=== PATIENT | male | born 1955 | race Caucasian/White ===

== ENCOUNTER → 2024-04-23 | Outpatient (CLI) | payer MEDICARE ==
[2024-04-23 09:52] LABS: ALT 17 U/L (4-49); AST 26 U/L (17-59); African American GFR (CKD) 66 (>60 ml/min/1.73 sqM); Albumin 3.9 g/dL (3.5-5.0); Albumin/Globulin Ratio 1.5; Alkaline Phosphatase 63 U/L (38-126); Anion Gap 7 mmol/L; Blood Urea Nitrogen 17 mg/dL (9-20); Calcium 9.5 mg/dL (8.4-10.2); Carbon Dioxide 23 mmol/L (22-30); Chloride 111 mmol/L (98-107); Globulin 2.6 g/dL; Glucose 102 mg/dL (74-99); Non-African American GFR(CKD) 57 (>60 ml/min/1.73 sqM); Potassium 4.4 mmol/L (3.5-5.1); Sodium 141 mmol/L (137-145); Total Protein 6.5 g/dL (6.3-8.2)
--- NOTE | 2024-04-23 09:57 | XR ---
EXAMINATION TYPE: XR Hip Complete RT DATE OF EXAM: 04/23/2024 9:16 AM CLINICAL INDICATION:Male, 69 years old with history of M25.551 PAIN IN RIGHT HIP; PHH COMPARISON: None. TECHNIQUE: XR Hip Complete RT; hip was examined in the frontal and lateral projections FINDINGS: No evidence for acute process, joint dislocation or significant soft tissue swelling. Osteo phyte formation of the superior acetabulum of the hip. There is mild joint space narrowing. IMPRESSION: 1. No evidence for acute process. 2. Mild hip osteoarthrosis.
== END | disposition home or self-care (01) ==
LOC: LABWHC1 08:20
PROVIDERS: ATTEND Family Medicine
DX: N18.30 Chronic kidney disease, stage 3 unspecified (principal); M16.11 Unilateral primary osteoarthritis, right hip
CPT/HCPCS: 36415; 73502; 80053

== ENCOUNTER → 2024-09-15 | Outpatient (CLI) | payer MEDICARE ==
[2024-09-15 10:12] LABS: Basophils # (A) 0.02 X 10*3/uL (0.00-0.10); Basophils % (A) 0.3 %; Eosinophils # (A) 0.22 X 10*3/uL (0.04-0.35); Eosinophils % (A) 3.4 %; HCT 45.5 % (39.6-50.0); HGB 15.6 g/dL (13.0-17.0); Lymphocytes # (A) 1.48 X 10*3/uL (0.90-5.00); Lymphocytes % (A) 23.1 %; MCH 31.3 pg (27.0-32.0); MCHC 34.3 g/dL (32.0-37.0); MCV 91.2 FL (80.0-97.0); Mean Platelet Volume 9.5 FL (9.5-12.2); Monocytes # (A) 0.53 X 10*3/uL (0.20-1.00); Monocytes % (A) 8.3 %; NRBC Per 100 WBC 0 X 10*3/uL (0.00-0.01); Neutrophils # (A) 4.13 X 10*3/uL (1.80-7.70); Neutrophils % (A) 64.6 %; Platelet Count 193 X 10*3/uL (140-440); RBC 4.99 X 10*6/uL (4.40-5.60); RDW 12.2 % (11.5-14.5)
[2024-09-15 10:45] LABS: Chol/HDL Ratio 3.93 Ratio; LDL Cholesterol,Calculated 75.3 mg/dL (0.0-131.0)
[2024-09-15 10:46] LABS: ALT 16 U/L (10-49); AST 21 U/L (14-35); Albumin 4.2 g/dL (3.8-4.9); Albumin/Globulin Ratio 2.21 Ratio (1.60-3.17); Alkaline Phosphatase 79 U/L (41-126); BUN/Creat Ratio 11.79 Ratio (12.00-20.00); Blood Urea Nitrogen 16.5 mg/dL (9.0-27.0); Calcium 9.3 mg/dL (8.7-10.3); Carbon Dioxide 26.1 mmol/L (21.6-31.8); Chloride 110 mmol/L (96-109); Globulin 1.9 g/dL (1.6-3.3); Glucose 107 mg/dL (70-110); Potassium 4.5 mmol/L (3.5-5.5); Prostate Specific Antigen 0.67 ng/mL (0.000-4.500); Sodium 145 mmol/L (135-145); Total Bilirubin 0.7 mg/dL (0.3-1.2); Total Protein 6.1 g/dL (6.2-8.2)
== END | disposition home or self-care (01) ==
LOC: LABWHC1 07:18
PROVIDERS: ATTEND Family Medicine
DX: Z12.5 Encounter for screening for malignant neoplasm of prostate (principal); I12.9 Hypertensive chronic kidney disease with stage 1 through stage 4 chronic kidney disease, or unspecified chronic kidney disease; N18.30 Chronic kidney disease, stage 3 unspecified
CPT/HCPCS: 36415; 80053; 80061; 82306; 84153; 85025

== ENCOUNTER 2025-02-26 17:49 | Inpatient (IN) | payer MEDICARE ==
--- NOTE | 2025-02-26 18:15 | ED ---
General Adult HPI - General Chief complaint: Fall Stated complaint: fell of ladder L side rib pain Time Seen by Provider: 02/26/25 18:00 Source: patient, family, RN notes reviewed, old records reviewed Limitations: no limitations - History of Present Illness Initial comments: Is a 70-year-old male who states he fell about 8 feet off of a ladder hit his side on concrete when he fell. Patient states he has pain in the left rib area. Patient denies any head injury patient denies hitting his head. Patient denies any loss of conscious. Patient denies any neck pain patient denies having numbness weakness. Patient denies any back pain. Patient states the chest pain on the left is on the lateral aspect. Patient states certain movements deftly makes it worse. Patient denies any abdominal pain. Patient denies any extremity pain. - Related Data Allergies Allergy/AdvReac Type Severity Reaction Status Date / Time No Known Allergies Allergy Verified 02/26/25 17:58 Review of Systems ROS Statement: Those systems with pertinent positive or pertinent negative responses have been documented in the HPI. ROS Other: All systems not noted in ROS Statement are negative. Past Medical History Past Medical History: Hypertension, Renal Disease Past Surgical History: No Surgical Hx Reported Smoking Status: Never smoker General Exam - General Exam Comments Initial Comments: GENERAL: Patient is well-developed and well-nourished. Patient is nontoxic and well- hydrated and is in moderate distress. ENT: Neck is soft and supple. No significant lymphadenopathy is noted. Oropharynx is clear. Moist mucous membranes. Neck has full range of motion without eliciting any pain. EYES: The sclera were anicteric and conjunctiva were pink and moist. Extraocular movements were intact and pupils were equal round and reactive to light. Eyelids were unremarkable. PULMONARY: Unlabored respirations. Good breath sounds bilaterally. No audible rales rhonchi or wheezing was noted. CARDIOVASCULAR: There is a regular rate and rhythm without any murmurs gallops or rubs. Patient has a left lateral rib pain ABDOMEN: Soft and nontender with normal bowel sounds. Patient has absolutely no abdominal pain SKIN: Skin is clear with no lesions or rashes and otherwise unremarkable. NEUROLOGIC: Patient is alert and oriented x3. Cranial nerves II through XII are grossly intact. Motor and sensory are also intact. Normal speech, volume and content. Symmetrical smile. MUSCULOSKELETAL: Normal extremities with adequate strength and full range of motion. LYMPHATICS: No significant lymphadenopathy is noted PSYCHIATRIC: Normal psychiatric evaluation. Limitations: no limitations Course Vital Signs 02/26/25 02/26/25 02/26/25 17:55 18:54 21:41 Temperature 98.1 F 97.5 F L Pulse Rate 62 82 77 Respiratory 18 20 19 Rate Blood Pressure 147/74 139/81 132/77 O2 Sat by Pulse 95 96 95 Oximetry Medical Decision Making - Medical Decision Making EKG is interpreted by myself EKG shows a sinus rhythm at 75 bpm NM interval 109 QRS 103 QT interval 383 QTc is 411. Patient's EKG shows no ST segment patient or depression Was pt. sent in by a medical professional or institution (, [facility], [employer]OR ENGINEER, urgent care, hospital, or penitentiary...) When possible be specific @ -No Did you speak to anyone other than the patient for history (EMS, parent, family, police, friend...)? What history was obtained from this source @ -No Did you review nursing and triage notes (agree or disagree)? Why? @ -I reviewed and agree with nursing and triage notes Were old charts reviewed (outside hosp., previous admission, EMS record, old EKG, old radiological studies, urgent care reports/EKG's, penitentiary records)? Report findings @ -No old charts were reviewed Differential Diagnosis? @ -Rib fractures, pneumothorax, hemothorax, sternal fracture, this is not an all-inclusive list @ -As above X-rays interpreted by me (1pt min.). @ -X-ray shows 4 rib fractures on the left CT interpreted by me (1pt min.). @ -CT scan shows 7 rib fractures on the left 3 through 8 are a flail chest T6 is a transverse process fracture and the patient has a pulmonary contusion. U/S interpreted by me (1pt. min.). @ -None done What testing was considered but not performed or refused? (CT, X-rays, U/S, labs)? Why? @ -None What meds were considered but not given or refused? Why? @ -None Did you discuss the management of the patient with other professionals (professionals i.e. [facility], [employer]OR ENGINEER, lab, RT, psych nurse, manager social media, strategy specialist, teacher, foreign service officer, rn case mgr)? Give summary @ -I spoke with Dr. Muñoz and he wanted the patient mated to the ICU. Spoke with Dr. Abebe and he agreed to take the patient to ICU. Was smoking cessation discussed for >3mins.? @ -No Was critical care preformed (if so, how long)? @ -40 minutes Were there social determinants of health that impacted care today? How? (Homelessness, low income, unemployed, alcoholism, drug addiction, transportation, low edu. Level, literacy, decrease access to med. care, residential, rehab)? @ -No Was there de-escalation of care discussed even if they declined (Discuss DNR or withdrawal of care, Hospice)? DNR status @ -No What co-morbidities impacted this encounter? (DM, HTN, Smoking, COPD, CAD, Cancer, CVA, ARF, Chemo, Hep., AIDS, mental health diagnosis, sleep apnea, morbid obesity)? @ -None Was patient admitted / discharged? Hospital course, mention meds given and route, prescriptions, significant lab abnormalities, going to OR and other pertinent info. @ -Patient got multiple doses of Dilaudid and was feeling better and he was not having problems breathing except for the fact that cause pain. Patient will be admitted to the ICU to Dr. Muñoz with a consult to Dr. Stern cardiothoracic surgery and anesthesia and internal medicine. Undiagnosed new problem with uncertain prognosis? @ -No Drug Therapy requiring intensive monitoring for toxicity (Heparin, Nitro, Insulin, Cardizem)? @ -No Were any procedures done? @ -No Diagnosis/symptom? @ -Flail chest Acute, or Chronic, or Acute on Chronic? @ -Acute Uncomplicated (without systemic symptoms) or Complicated (systemic symptoms)? @ -Complicated Side effects of treatment? @ -No Exacerbation, Progression, or Severe Exacerbation? @ -No Poses a threat to life or bodily function? How? (Chest pain, USA, MD, pneumonia, PE, COPD, DKA, ARF, appy, cholecystitis, CVA, Diverticulitis, Homicidal, Suicidal, threat to staff... and all critical care pts) @ -Yes this could lead to hypoxia and endorgan dysfunction Diagnosis/symptom? @ -Pulmonary contusion Acute, or Chronic, or Acute on Chronic? @ -Acute Uncomplicated (without systemic symptoms) or Complicated (systemic symptoms)? @ -Complicated Side effects of treatment? @ -None Exacerbation, Progression, or Severe Exacerbation] @ -No Poses a threat to life or bodily function? @ -Yes this can lead to hypoxia and endorgan dysfunction Diagnosis/symptom? @ -T6 transverse process fracture Acute, or Chronic, or Acute on Chronic? @ -Default Uncomplicated (without systemic symptoms) or Complicated (systemic symptoms)? @ -Default Side effects of treatment? @ -None Exacerbation, Progression, or Severe Exacerbation] @ -No Poses a threat to life or bodily function? @ -No - Lab Data Result diagrams: 02/26/25:02/26/25: Lab Results 02/26/25 02/26/25 02/26/25 Range/Units ::: WBC 17.74 H (4.50-10.00) 10*3/uL RBC 5.29 (4.40-5.60) 10*6/uL Hgb 16.8 (13.0-17.0) g/dL Hct 47.1 (39.6-50.0) % MCV 89.0 (80.0-97.0) fL MCH 31.8 (27.0-32.0) pg MCHC 35.7 (32.0-37.0) g/dL Plt Count 237 (140-440) 10*3/uL MPV 8.8 L (9.5-12.2) fL Immature Gran % (Auto) 0.4 % Neutrophils % 89.0 % Lymphocytes % 4.4 % Monocytes % 6.0 % Eosinophils % 0.0 % Basophils % 0.2 % Immature Gran # 0.07 H (0.00-0.04) 10*3/uL Neutrophils # 15.80 H (1.80-7.70) 10*3/uL Lymphocytes # 0.78 L (0.90-5.00) 10*3/uL Monocytes # 1.06 H (0.20-1.00) 10*3/uL Eosinophils # 0.00 L (0.04-0.35) 10*3/uL Basophils # 0.03 (0.00-0.10) 10*3/uL PT 11.3 (10.0-12.5) sec INR 1.0 (<1.2) APTT 21.1 L (22.0-30.0) sec Sodium 141 (137-145) mmol/L Potassium 4.6 (3.5-5.1) mmol/L Chloride 105 (98-107) mmol/L Carbon Dioxide 24 (22-30) mmol/L Anion Gap 12 mmol/L BUN 24 H (9-20) mg/dL Creatinine 1.45 H (0.66-1.25) mg/dL Est GFR (CKD-EPI)AfAm 56 (>60 ml/min/1.73 sqM) Est GFR (CKD-EPI)NonAf 48 (>60 ml/min/1.73 sqM) Glucose 159 H (74-99) mg/dL Calcium 10.0 (8.4-10.2) mg/dL Total Bilirubin 0.9 (0.2-1.3) mg/dL AST 36 (17-59) U/L ALT 23 (4-49) U/L Alkaline Phosphatase 80 (38-126) U/L Total Protein 7.4 (6.3-8.2) g/dL Albumin 4.7 (3.5-5.0) g/dL Disposition Clinical Impression: Fall, Pulmonary contusion, Flail chest, Fracture of transverse process of thoracic vertebra Disposition: ADMITTED IP TO THIS [facility] Time of Disposition: 21:30
[2025-02-26] MEDS: HYDROmorphone 0.5 MG/0.5 ML SYRINGE IVP STA ×2 (18:23→19:54)
--- NOTE | 2025-02-26 18:51 | XR ---
EXAMINATION TYPE: XR ribs LT w pa chest xray DATE OF EXAM: 02/26/2025 6:42 PM INDICATION: Patient age:Male; 70 years old; Reason for study: Trauma; PHH. pain COMPARISON: None TECHNIQUE: Frontal and oblique views of the left wrist with additional PA chest radiograph FINDINGS: The ribs have a normal appearance. Acute mildly displaced left lateral fourth through eight h rib fractures. Overall, the lungs are clear. The cardiac silhouette is normal in size. The remain ing osseous structures are intact. IMPRESSION: Acute mildly displaced left lateral 4-8 rib fractures. No sizable pneumothorax identified. [facility], , 02/26/2025 6:49 PM
--- NOTE | 2025-02-26 21:03 | CT ---
EXAMINATION TYPE: CT chest wo con CT DLP: 436.5 mGycm, Automated exposure control for dose reduction was used. DATE OF EXAM: 02/26/2025 8:39 PM COMPARISON: Chest radiograph from same day. CLINICAL INDICATION:Male, 70 years old with history of Trauma; PHH, FALL FROM LADDER, LEFT SIDE RIB P AIN TECHNIQUE: Multiple axial images were obtained through the chest without IV contrast. Lack of IV or o ral contrast limits evaluation of solid and hollow organ viscera. . Coronal and sagittal reformats re viewed. FINDINGS: LUNGS/ PLEURA: Trace anterior pneumothorax in the medial left lung inferiorly. Trace left pleural eff usion. Bibasilar patchy airspace opacities. No suspicious pulmonary nodule or mass. AIRWAY: Patent and unremarkable.. HEART: Cardiomegaly is demonstrated. . No pericardial effusion. No significant coronary artery calcif ications. MEDIASTINUM: No gross evidence of adenopathy. No mediastinal hematoma. VASCULATURE: No aortic aneurysm. MUSCULOSKELETAL: Acute minimally displaced anterior left second rib fracture. Acute nondisplaced segm ental fractures of the third and fourth ribs. Acute segmental mildly displaced left fifth rib fractur e. Nondisplaced acute left segmental sixth rib fracture. Acute left segmental mildly displaced sevent h rib fracture. Acute nondisplaced left segmental eighth rib fracture. Acute nondisplaced fracture of the left T6 transverse process. Multilevel degenerative disc disease. SOFT TISSUES/LYMPH NODES: Trace left chest wall subcutaneous emphysema. Bilateral gynecomastia. LOWER NECK: No significant findings. UPPER ABDOMEN: Small hiatal hernia. IMPRESSION: 1. Multiple left-sided acute nondisplaced to mildly displaced fractures with involving the second and third through eighth ribs. There are segmental fractures of the third through eighth ribs. Raises co ncern for flail chest. Additional nondisplaced acute left T6 transverse process fracture. There is as sociated trace pneumothorax, left pleural effusion, and subcutaneous emphysema. 2. Bibasilar patchy opacities likely representing pulmonary contusions and/or atelectasis. Findings communicated to Dr. oTdd Harvey on 02/26/2025 9:[address] Jacob Brady . [facility], , 02/26/2025 9:00 PM
[2025-02-26] MEDS ORDERED: NALOXONE 0.4 MG/ML 1 ML VIAL IV PRN ×2 (21:31→21:33)
[2025-02-26 21:34] LABS: Basophils # (A) 0.03 10*3/uL (0.00-0.10); Basophils % (A) 0.2 %; HCT 47.1 % (39.6-50.0); HGB 16.8 g/dL (13.0-17.0); Lymphocytes # (A) 0.78 10*3/uL (0.90-5.00); Lymphocytes % (A) 4.4 %; MCH 31.8 pg (27.0-32.0); MCHC 35.7 g/dL (32.0-37.0); Mean Platelet Volume 8.8 fL (9.5-12.2); Monocytes # (A) 1.06 10*3/uL (0.20-1.00); Platelet Count 237 10*3/uL (140-440); RBC 5.29 10*6/uL (4.40-5.60); RDW 12.6 % (11.5-14.5); WBC 17.74 10*3/uL (4.50-10.00)
[2025-02-26] MEDS: HYDROmorphone 1 MG/ML 1 ML SYRINGE IVP STA (21:39)
[2025-02-26 21:50] LABS: ALT 23 U/L (4-49); AST 36 U/L (17-59); African American GFR (CKD) 56 (>60 ml/min/1.73 sqM); Albumin 4.7 g/dL (3.5-5.0); Alkaline Phosphatase 80 U/L (38-126); Anion Gap 12 mmol/L; Blood Urea Nitrogen 24 mg/dL (9-20); Carbon Dioxide 24 mmol/L (22-30); Chloride 105 mmol/L (98-107); Glucose 159 mg/dL (74-99); Non-African American GFR(CKD) 48 (>60 ml/min/1.73 sqM); Potassium 4.6 mmol/L (3.5-5.1); Sodium 141 mmol/L (137-145); Total Bilirubin 0.9 mg/dL (0.2-1.3); Total Protein 7.4 g/dL (6.3-8.2)
[2025-02-26 21:51] LABS: Prothrombin Time 11.3 sec (10.0-12.5)
[2025-02-26 21:53] LABS: Partial Thromboplastin Time 21.1 sec (22.0-30.0)
[2025-02-27 00:26] LABS: Glucose,Whole Blood 196 mg/dL (70-110)
[2025-02-27] MEDS ORDERED: KETOROLAC 15 MG/ML 1 ML VIAL IVP PRN (01:21)
--- NOTE | 2025-02-27 03:08 | P.CNPUL ---
History of Present Illness Consult date: 02/27/25 Requesting physician: Todd Harvey Reason for consult: other (Fall, rib fractures, flail chest) Chief complaint: Fall History of present illness: Patient is a 70-year-old male came to the emergency department yesterday evening after a fall from a ladder. He fell approximately 8 feet onto concrete. Landed on his left side. Denies any head trauma or loss of consciousness. Denies any anticoagulants. His chief complaint was left lateral chest pain. Workup in the emergency department including a CT of the chest demonstrating multiple left- sided acute nondisplaced to mildly displaced fractures involving the left 2nd through 8th ribs, with segmental fractures of 3rd through 8th ribs. Concern for flail chest. Trace left inferior pneumothorax and trace pleural effusion. Bilateral atelectasis or pulmonary contusion. Small amount of subcutaneous emphysema. Additional, nondisplaced acute left T6 transverse process fracture. Labs including a CBC with a WBC count of 7.7, hemoglobin 16.8, platelets 237. BMP: Sodium 141, potassium 4.6, chloride 105, serum bicarb 24, BUN 24, crea tinine 1.45, glucose 159. Lactic 2.3 and now 2.8. LFTs unremarkable. Patient currently being evaluated in the intensive care unit. He is on room air. No acute distress. Trachea midline. Equal breath sounds. No paradoxical chest wall movement. No palpable subcu emphysema or crepitus. Continues to report left lateral chest wall pain with movement and deep breathing. Rated 10/10. Morphine is ordered as needed. His incentive spirometer is at bedside. Current vital signs: Heart rate 63 bpm, blood pressure 133/76 mmHg, nontachypneic, SpO2 92% on room air. Review of Systems Constitutional: Denies chills, Denies fever, Denies poor appetite, Denies weight gain, Denies weight loss Ears, nose, mouth and throat: Denies headache Cardiovascular: Reports chest pain, Reports leg edema, Denies lightheadedness, Denies orthopnea, Denies palpitations, Denies paroxysmal nocturnal dyspnea, Denies syncope Respiratory: Reports dyspnea, Reports pain on inspiration, Denies congestion, Denies cough, Denies hemoptysis Gastrointestinal: Denies abdominal pain, Denies diarrhea, Denies nausea, Denies vomiting Genitourinary: Denies dysuria, Denies hematuria Musculoskeletal: Denies arm numbness/tingling, Denies leg numbness/tingling, Denies limitation of motion, Denies neck pain, Denies neck stiffness, Denies s hooting arm pain, Denies shooting leg pain Integumentary: Denies rash, Denies unusual bruising Neurological: Denies head injury, Denies headaches, Denies numbness, Denies paralysis, Denies paresthesias, Denies seizures, Denies syncope, Denies visual changes Psychiatric: Denies anxiety, Denies depression Past Medical History Past Medical History: Hypertension, Renal Disease History of Any Multi-Drug Resistant Organisms: None Reported Past Surgical History: No Surgical Hx Reported Past Anesthesia/Blood Transfusion Reactions: No Reported Reaction Past Psychological History: No Psychological Hx Reported Smoking Status: Never smoker Medications and Allergies Allergies Allergy/AdvReac Type Severity Reaction Status Date / Time No Known Allergies Allergy Verified 02/26/25 17:58 Physical Exam Vitals: Vital Signs Temp Pulse Resp BP Pulse Ox 02/27/25 01:00 63 16 133/76 92 L 02/27/25 00:30 70 24 133/76 92 L 02/26/25 23:53 69 20 124/79 94 L 02/26/25 23:21 97.7 F 67 21 117/63 94 L 02/26/25 22:35 20 02/26/25 21:41 77 19 132/77 95 02/26/25 18:54 97.5 F L 82 20 139/81 96 02/26/25 17:55 98.1 F 62 18 147/74 95 Intake and Output 02/26/25 02/26/25 02/27/25 14:59 22:59 06:59 Output Total 0 Balance 0 Output: Urine 0 Other: Weight 113.398 kg 113.398 kg GENERAL EXAM: Alert, 70-year-old male, on room air, fairly comfortable in no apparent distress. HEAD: Normocephalic and atraumatic EYES: Normal reaction of pupils, equal size. NOSE: Clear with pink turbinates. THROAT: No erythema or exudates. NECK: No masses, no JVD. Trachea midline. CHEST: No paradoxical chest wall movement. No significant crepitus or subcutaneous emphysema. No ecchymosis. LUNGS: Equal air entry with no crackles, wheeze, rhonchi or dullness. No conversational dyspnea or accessory muscle use.. CVS: S1 and S2 normal with no audible murmur, regular rhythm. No extra heart sounds ABDOMEN: No hepatosplenomegaly, active bowel sounds, no guarding or rigidity. SPINE: No scoliosis or deformity SKIN: No rashes. Ecchymosis, left lateral abdomen CENTRAL NERVOUS SYSTEM: No focal deficits, tone is normal in all 4 extremities. EXTREMITIES: There is mild bilateral nonpitting edema. No clubbing or cyanosis. Peripheral pulses are intact. Results - Laboratory Findings CBC and BMP: 02/27/25 03:23 02/27/25 03:19 PT/INR, D-dimer PT 11.3 sec (10.0-12.5) 02/26/25 21: INR 1.0 (<1.2) 02/26/25 21: Abnormal lab findings: Abnormal Labs 02/26/25 02/26/25 02/26/25 21:25 21:25 21:25 WBC 17.74 H MPV 8.8 L Immature Gran # 0.07 H Neutrophils # 15.80 H Lymphocytes # 0.78 L Monocytes # 1.06 H Eosinophils # 0.00 L APTT 21.1 L BUN 24 H Creatinine 1.45 H Glucose 159 H POC Glucose (mg/dL) Plasma Lactic Acid Fam 02/26/25 02/27/25 02/27/25 22:15 00:25 01:13 WBC MPV Immature Gran # Neutrophils # Lymphocytes # Monocytes # Eosinophils # APTT BUN Creatinine Glucose POC Glucose (mg/dL) 196 H Plasma Lactic Acid Fam 2.3 H* 2.8 H* - Diagnostic Findings Chest x-ray: image reviewed CT scan - chest: image reviewed Assessment and Plan Assessment: Acute nondisplaced to mildly displaced fractures involving left 2nd through 8th ribs with segmental fractures from 3rd through 8th ribs. Clinically, no paradoxical chest wall movement. Trace left-sided pleural effusion, likely hemothorax Trace left-sided pneumothorax Bibasilar atelectasis versus pulmonary contusion Acute dyspnea, secondary to combination of above Fall from ladder Hypertension Acute versus chronic kidney disease Obesity, BMI 33.9 kg/m Plan: Patient's medications, labs, imaging reviewed Currently on room air, in no apparent distress Pain management with IV push morphine as needed and lidocaine patch Encourage pulmonary toileting hourly, incentive spirometer at bedside No need for thoracotomy tube Repeat chest x-ray in the morning Cardiothoracic surgery consulted Patient is being monitored in the intensive care unit, further recommendations forthcoming I have personally seen and examined the patient, performed the documentation and the assessment and plan as written. Number of minutes spent on the visit:20 02/27/2025, the patient is being seen in joint evaluation along with the nurse practitioner. This evaluation was done and 32 minutes. In summary, the patient has multiple nondisplaced and mildly displaced fractures of the ribs on the left 2nd through 8th. On clinical examination, the chest is not flail. There is no paradoxic movement of the chest noted. This was a mechanical fall. No loss of consciousness. The patient has some atelectatic changes and limited contusion in the left lung base. He is currently on room air oxygen. No evidence of any pneumothorax. No pneumothorax. Pain is being controlled with morphine and lidocaine patch. CT surgery was consulted. The treatment is going to be essentially pain control, incentive spirometer and pulmonary toileting. Will continue monitoring and x-ray will be obtained of the chest within next 24 hours Time with Patient: Greater than 30
[2025-02-27] MEDS: LIDOCAINE 4% PATCH TOPICAL SCH (03:10)
[2025-02-27 04:12] LABS: Basophils # (A) 0.01 10*3/uL (0.00-0.10); Basophils % (A) 0.1 %; HCT 44.7 % (39.6-50.0); HGB 15.7 g/dL (13.0-17.0); Lymphocytes # (A) 0.53 10*3/uL (0.90-5.00); Lymphocytes % (A) 4.3 %; MCH 32.4 pg (27.0-32.0); MCHC 35.1 g/dL (32.0-37.0); MCV 92.2 fL (80.0-97.0); Mean Platelet Volume 8.9 fL (9.5-12.2); Monocytes # (A) 0.83 10*3/uL (0.20-1.00); Monocytes % (A) 6.7 %; Neutrophils # (A) 10.88 10*3/uL (1.80-7.70); Neutrophils % (A) 88.5 %; Platelet Count 202 10*3/uL (140-440); RBC 4.85 10*6/uL (4.40-5.60); RDW 12.7 % (11.5-14.5)
[2025-02-27 04:53] LABS: African American GFR (CKD) 58 (>60 ml/min/1.73 sqM); Anion Gap 12 mmol/L; Blood Urea Nitrogen 26 mg/dL (9-20); Calcium 9.8 mg/dL (8.4-10.2); Carbon Dioxide 21 mmol/L (22-30); Chloride 107 mmol/L (98-107); Glucose 144 mg/dL (74-99); Magnesium 2.1 mg/dL (1.6-2.3); Non-African American GFR(CKD) 50 (>60 ml/min/1.73 sqM); Potassium 5.3 mmol/L (3.5-5.1); Sodium 140 mmol/L (137-145)
[2025-02-27] MEDS: MORPHINE SULFATE 2 MG/ML SYRINGE IV PRN (05:12)
[2025-02-27] MEDS: SODIUM CHLORIDE 0.9% 1,000 ML IV SCH (05:20)
--- NOTE | 2025-02-27 07:20 | XR ---
EXAMINATION TYPE: XR chest 1V portable DATE OF EXAM: 02/27/2025 5:53 AM COMPARISON: CT CLINICAL INDICATION: Male, 70 years old with history of Chest Trauma; pain TECHNIQUE: XR chest 1V portable Frontal view of the chest. FINDINGS: Lungs/Pleura: There is no evidence of pleural effusion, focal consolidation, or pneumothorax. Pulmonary vascularity: Unremarkable. Heart/mediastinum: Cardiomediastinal silhouette is unremarkable. Musculoskeletal: Acute fracture left rib 3-[address] Other findings: None IMPRESSION: 1. There is at least one left-sided rib fracture present of left rib 3 through 8. 2. Low lung volumes with a generalized hazy appearance which could represent atelectasis versus pulm onary edema correlate with serum BNP. [facility], , 02/27/2025 7:18 AM
--- NOTE | 2025-02-27 08:33 | P.GSCN ---
History of Present Illness Consult date: 02/27/25 Reason for Consult: Fall with fractured ribs, concern for flail chest Requesting physician: Todd Harvey History of present illness: This is a 70-year-old gentleman who follows outpatient with Dr. Aranda for internal medicine. He denies any significant medical history except hypertension and borderline kidney disease, states the only medication he takes is something for blood pressure. He presented to [facility] emergency room yesterday after a fall off a ladder, he fell approximately 8 feet onto [facility] and landed on his left side. Denied any loss of consciousness. In the emergency room rib x-ray demonstrated acute mildly displaced left lateral 4 through [address] demonstrated multiple left-sided acute nondisplaced to mildly displaced fractures involving the 2nd through 8th ribs with segmental fractures of the 3rd through 8th ribs concerning for flail chest. Lab work revealed WBC 17.7, hemoglobin 16.8, creatinine 1.45, lactic acid 2.3. The patient's biggest complaint is left-sided chest pain especially with deep breaths and coughing. He was admitted for evaluation and treatment with consultation placed to pulmonology, pain management as well as cardiothoracic ba rgery. Review of Systems Review of systems was completed and was negative except as noted - Cardiovascular Reports as per HPI, Reports chest pain Past Medical History Past Medical History: Hypertension, Renal Disease History of Any Multi-Drug Resistant Organisms: None Reported Past Surgical History: No Surgical Hx Reported Past Anesthesia/Blood Transfusion Reactions: No Reported Reaction Past Psychological History: No Psychological Hx Reported Smoking Status: Never smoker Past Alcohol Use History: Rare Additional Past Alcohol Use History / Comment(s): Drinks few drinks on the weekends Past Drug Use History: None Reported - Past Family History Father Family Medical History: Cancer Mother Additional Family Medical History / Comment(s): from some kind of abdominal issue for which she did not want surgery Medications and Allergies Allergies Allergy/AdvReac Type Severity Reaction Status Date / Time No Known Allergies Allergy Verified 02/26/25 17:58 Surgical - Exam Vital Signs Temp Pulse Resp BP Pulse Ox 98.1 F 62 18 147/74 95 02/26/25 17:55 02/26/25 17:55 02/26/25 17:55 02/26/25 17:55 02/26/25 17:55 CONSTITUTIONAL: Awake and alert, appears uncomfortable, cooperative, well-developed, well-nourished, does appear to be in pain EYES: Pupils equal, round, reactive to light, normal ocular movement ENT: Moist mucous membranes without oral lesions present NECK: No masses, no bruits, trachea midline RESPIRATORY: Lungs sounds diminished in the left base. Respirations even, nonlabored. Currently on room air with oxygen saturation 93%. Strong cough. No chest wall deformities. No clubbing or cyanosis present CARDIOVASCULAR: S1, S2 present. Regular rate and rhythm, sinus rhythm on telemetry. Palpable peripheral pulses bilaterally. No edema present. No calf pain or tenderness noted GASTROINTESTINAL: Abdomen soft, nontender, nondistended without masses or organomegaly noted. There is no rebound or guarding present. Active bowel sounds present 4 quadrants. GENITOURINARY: Deferred INTEGUMENTARY: Skin is warm and dry NEUROLOGIC: Cranial nerves II through XII intact, normal coordination, no obvious motor or sensory deficits, speech is normal MUSKULOSKELETAL: Able to move all extremities, strength equal bilaterally, normal posture PSYCHIATRIC: Alert and oriented to person place and time, appropriate affect, intact judgment and insight Results - Labs 02/27/25 03:23 02/27/25 03:19 Abnormal Lab Results - Last 24 Hours (Table) 02/26/25 02/26/25 02/26/25 Range/Units 21:25 21:25 21:25 WBC 17.74 H (4.50-10.00) 10*3/uL MCH (27.0-32.0) pg MPV 8.8 L (9.5-12.2) fL Immature Gran # 0.07 H (0.00-0.04) 10*3/uL Neutrophils # 15.80 H (1.80-7.70) 10*3/uL Lymphocytes # 0.78 L (0.90-5.00) 10*3/uL Monocytes # 1.06 H (0.20-1.00) 10*3/uL Eosinophils # 0.00 L (0.04-0.35) 10*3/uL APTT 21.1 L (22.0-30.0) sec Potassium (3.5-5.1) mmol/L Carbon Dioxide (22-30) mmol/L BUN 24 H (9-20) mg/dL Creatinine 1.45 H (0.66-1.25) mg/dL Glucose 159 H (74-99) mg/dL POC Glucose (mg/dL) (70-110) mg/dL Plasma Lactic Acid Fam (0.7-2.0) mmol/L 02/26/25 02/27/25 02/27/25 Range/Units 22:15 00:25 01:13 WBC (4.50-10.00) 10*3/uL MCH (27.0-32.0) pg MPV (9.5-12.2) fL Immature Gran # (0.00-0.04) 10*3/uL Neutrophils # (1.80-7.70) 10*3/uL Lymphocytes # (0.90-5.00) 10*3/uL Monocytes # (0.20-1.00) 10*3/uL Eosinophils # (0.04-0.35) 10*3/uL APTT (22.0-30.0) sec Potassium (3.5-5.1) mmol/L Carbon Dioxide (22-30) mmol/L BUN (9-20) mg/dL Creatinine (0.66-1.25) mg/dL Glucose (74-99) mg/dL POC Glucose (mg/dL) 196 H (70-110) mg/dL Plasma Lactic Acid Fam 2.3 H* 2.8 H* (0.7-2.0) mmol/L 02/27/25 02/27/25 02/27/25 Range/Units 03:19 03:23 03:52 WBC 12.30 H (4.50-10.00) 10*3/uL MCH 32.4 H (27.0-32.0) pg MPV 8.9 L (9.5-12.2) fL Immature Gran # 0.05 H (0.00-0.04) 10*3/uL Neutrophils # 10.88 H (1.80-7.70) 10*3/uL Lymphocytes # 0.53 L (0.90-5.00) 10*3/uL Monocytes # (0.20-1.00) 10*3/uL Eosinophils # 0.00 L (0.04-0.35) 10*3/uL APTT (22.0-30.0) sec Potassium 5.3 H (3.5-5.1) mmol/L Carbon Dioxide 21 L (22-30) mmol/L BUN 26 H (9-20) mg/dL Creatinine 1.42 H (0.66-1.25) mg/dL Glucose 144 H (74-99) mg/dL POC Glucose (mg/dL) (70-110) mg/dL Plasma Lactic Acid Fam 3.0 H* (0.7-2.0) mmol/L Diabetes panel 02/26/25 02/27/25 Range/Units 21:25 03:19 Sodium 141 140 (137-145) mmol/L Potassium 4.6 5.3 H (3.5-5.1) mmol/L Chloride 105 107 (98-107) mmol/L Carbon Dioxide 24 21 L (22-30) mmol/L BUN 24 H 26 H (9-20) mg/dL Creatinine 1.45 H 1.42 H (0.66-1.25) mg/dL Glucose 159 H 144 H (74-99) mg/dL Calcium 10.0 9.8 (8.4-10.2) mg/dL AST 36 (17-59) U/L ALT 23 (4-49) U/L Alkaline Phosphatase 80 (38-126) U/L Total Protein 7.4 (6.3-8.2) g/dL Albumin 4.7 (3.5-5.0) g/dL Calcium panel 02/26/25 02/27/25 Range/Units 21:25 03:19 Calcium 10.0 9.8 (8.4-10.2) mg/dL Albumin 4.7 (3.5-5.0) g/dL Pituitary panel 02/26/25 02/27/25 Range/Units 21:25 03:19 Sodium 141 140 (137-145) mmol/L Potassium 4.6 5.3 H (3.5-5.1) mmol/L Chloride 105 107 (98-107) mmol/L Carbon Dioxide 24 21 L (22-30) mmol/L BUN 24 H 26 H (9-20) mg/dL Creatinine 1.45 H 1.42 H (0.66-1.25) mg/dL Glucose 159 H 144 H (74-99) mg/dL Calcium 10.0 9.8 (8.4-10.2) mg/dL Adrenal panel 02/26/25 02/27/25 Range/Units 21:25 03:19 Sodium 141 140 (137-145) mmol/L Potassium 4.6 5.3 H (3.5-5.1) mmol/L Chloride 105 107 (98-107) mmol/L Carbon Dioxide 24 21 L (22-30) mmol/L BUN 24 H 26 H (9-20) mg/dL Creatinine 1.45 H 1.42 H (0.66-1.25) mg/dL Glucose 159 H 144 H (74-99) mg/dL Calcium 10.0 9.8 (8.4-10.2) mg/dL Total Bilirubin 0.9 (0.2-1.3) mg/dL AST 36 (17-59) U/L ALT 23 (4-49) U/L Alkaline Phosphatase 80 (38-126) U/L Total Protein 7.4 (6.3-8.2) g/dL Albumin 4.7 (3.5-5.0) g/dL - Imaging Chest x-ray: report reviewed, image reviewed CT scan - chest: report reviewed, image reviewed Assessment and Plan Assessment: Fall from ladder with left-sided rib fractures, concern for flail chest Left-sided chest pain History of hypertension Borderline renal failure Plan: The patient was seen and examined sitting up in bed in the intensive care unit. Does appear to be in pain with movement, coughing, deep breathing. Chart/diagnostics reviewed. Discussed with Dr. Mckay. There is no paradoxical movement of the chest suggesting no flail chest present. No surgical intervention at this time. Recommend pain control, preferably without anti- inflammatories as patient states his doctor has told him not to take NSAIDs due to his kidney disease. Encouraged deep breathing and use of incentive spirometer. Increase activity as tolerated. Medical management per internal medicine, pain management services. Will see again as needed. Thank you for this consult. Please call us with any further questions. I have personally seen and examined the patient, performed the documentation and the assessment and plan as written. Number of minutes spent on the visit: 30. PALOMO Green
[2025-02-27] MEDS ORDERED: LIDOCAINE 4% PATCH TOPICAL SCH (09:00)
[2025-02-27] MEDS ORDERED: HYDROmorphone 1 MG/ML 1 ML SYRINGE IVP PRN (10:51)
[2025-02-27] MEDS: HYDROcodone/APAP 5-325MG 1 EACH TAB PO PRN (11:24)
[2025-02-27] MEDS ORDERED: ROPIVACAINE 5MG/ML 20ML VIAL ONE (11:46)
[2025-02-27] MEDS ORDERED: DEXAMETHASONE SOD PHOSPHATE 10 MG/ML 1 ML VIAL ONE (11:46)
[2025-02-27] MEDS: NEBIVOLOL 5 MG TAB PO SCH (11:55)
--- NOTE | 2025-02-27 12:06 | P.CONS ---
History of Present Illness - Reason for Consult Consult date: 02/27/25 Medical management Requesting physician: Kylee Muñoz - Chief Complaint Fall - History of Present Illness Very pleasant 70-year-old patient, with chronic medical condition include hypertension chronic kidney disease. Patient was in his garage on the ladder. And coming down after putting up stuff patient to grab staff and fell. Injury on his left side. X-ray showed displaced mildly left lateral 4-8 rib fractures. No pneumothorax was identified. CT scan did show some segmental fractures of the 3rd through 8th ribs. In view of that patient was moved to the ICU. But it was decided patient does not have any flail chest. Having significant pain. Slight cough Review of systems: GEN.: None EYES: None HEENT: None NECK: None RESPIRATORY: Splinting with deep breaths] CARDIOVASCULAR: None GASTROINTESTINAL: None GENITOURINARY: None MUSCULOSKELETAL: As above e LYMPHATICS: None HEMATOLOGICAL: None PSYCHIATRY: None NEUROLOGICAL: None Social history: Few drinks on the weekends. Non-smoker. . Physical examination: VITAL SIGNS: 98.1, 61, 18, 146% in room, 94% room air GENERAL: BMI 31.1, laying in bed awake not in distress. Pain left chest wall with deep breathing EYES: Pupils equal. Conjunctiva masoud l. HEENT: External appearance of nose and ears normal, oral cavity grossly normal. NECK: JVD not raised; masses not palpable. HEART: First and second heart sounds are normal; no edema. LUNGS: Respiratory rate increased, decreased breath sounds left side.. ABDOMEN: Soft, nontender, liver spleen not palpable, no masses palpable. PSYCH: Alert and oriented x3; mood and affect masoud l. MUSCULOSKELETAL:No Clubbing/cyanosis;muscles-grossly intact. Reproducible tenderness on the left chest wall NEUROLOGICAL: Cranial nerves grossly intact; no facial asymmetry, power and sensation grossly intact. LYMPHATICS: No lymph nodes palpable in the axilla and neck INVESTIGATIONS, reviewed in the clinical context: February 27, 2025: White count 12.3 hemoglobin 15.7 platelets 202 sodium 140 potassium 5.3 bicarb 21 BUN 26 creatinine 1.42 Lactic acid 2.3, 2.8 February 26: White count 7.7 hemoglobin 16.8 sodium 141 potassium 4.6 BUN 24 cre atinine 1.45 EKG tracing personally reviewed by md-normal sinus rhythm CT chest: Multiple left-sided acute nondisplaced to mildly displaced fractures with involving the second and through eighth ribs. Segmental fractures of the 3rd through 8th rib. Additional nondisplaced acute left T6 transverse process fracture. Associated trace pneumothorax. Left pleural effusion subcutaneous emphysema. Bibasilar patchy opacities likely representing pulmonary contusion Assessment plan: - Acute left-sided nondisplaced to mildly displaced fracture involving the 2nd through 8th ribs. Segmental fractures through third through the eighth rib. No flail chest. Pain management. Consulted for nerve block Incentive spirometry - Nondisplaced acute left T6 transverse process fracture secondary to fall - Trace left-sided pneumothorax secondary to above. Follow clinically - Left pleural effusion/bilateral patchy opacity likely representing pulmonary contusion. - Essential hypertension Resume Nebivolol. Hold amlodipine - Chronic kidney disease, stage III likely nephrosclerosis - Lactic acidosis type II. No clinical evidence of infection - Leukocytosis, likely reactive Discussed with the patient . Continue using incentive spirometry. Medications reviewed. Ambulate as tolerated. Hold off subcu Lovenox because of possible lung contusion. IV fluids Thank you Dr. Muñoz Past Medical History Past Medical History: Hypertension, Renal Disease History of Any Multi-Drug Resistant Organisms: None Reported Past Surgical History: No Surgical Hx Reported Past Anesthesia/Blood Transfusion Reactions: No Reported Reaction Past Psychological History: No Psychological Hx Reported Smoking Status: Never smoker Past Alcohol Use History: Rare Additional Past Alcohol Use History / Comment(s): Drinks few drinks on the weekends Past Drug Use History: None Reported - Past Family History Father Family Medical History: Cancer Mother Additional Family Medical History / Comment(s): from some kind of abdominal issue for which she did not want surgery Medications and Allergies Home Medications Medication Instructions Recorded Confirmed Type Nebivolol HCl 2.5 mg PO DAILY 02/27/25 02/27/25 History amLODIPine [Norvasc] 10 mg PO DAILY 02/27/25 02/27/25 History Allergies Allergy/AdvReac Type Severity Reaction Status Date / Time No Known Allergies Allergy Verified 02/27/25 10:25 Physical Exam Vitals: Vital Signs Temp Pulse Resp BP Pulse Ox 02/27/25 10:00 61 18 146/74 94 L 02/27/25 09:00 60 15 135/79 95 02/27/25 08:00 98.1 F 62 19 126/66 94 L 02/27/25 07:00 60 24 135/74 93 L 02/27/25 06:00 65 23 118/64 93 L 02/27/25 05:00 59 L 15 131/67 92 L 02/27/25 04:00 98.3 F 61 17 93 L 02/27/25 03:00 61 11 L 92 L 02/27/25 02:00 60 17 93 L 02/27/25 01:00 63 16 133/76 92 L 02/27/25 00:30 70 24 133/76 92 L 02/26/25 23:53 69 20 124/79 94 L 02/26/25 23:21 97.7 F 67 21 117/63 94 L 02/26/25 22:35 20 02/26/25 21:41 77 19 132/77 95 02/26/25 18:54 97.5 F L 82 20 139/81 96 02/26/25 17:55 98.1 F 62 18 147/74 95 Intake and Output 02/26/25 02/27/25 02/27/25 22:59 06:59 14:59 Intake Total 1650 150 Output Total 500 0 Balance 1150 150 Intake: IV 75 Sodium Chloride 0.9% 1, 75 000 ml @ 75 mls/hr IV . [id number] [facility] Rx#:[id number] Intake, IV Titration 150 75 Amount Sodium Chloride 0.9% 1, 150 75 000 ml @ 75 mls/hr IV . [id number] [facility] Rx#:[id number] Oral 1500 Output: Urine 500 0 Other: Voiding Method Urinal Weight 113.398 kg 104 kg Results CBC & Chem 7: 02/27/25 03:23 02/27/25 03:19 Labs: Abnormal Lab Results - Last 24 Hours (Table) 02/26/25 02/26/25 02/26/25 Range/Units 21:25 21:25 21:25 WBC 17.74 H (4.50-10.00) 10*3/uL MCH (27.0-32.0) pg MPV 8.8 L (9.5-12.2) fL Immature Gran # 0.07 H (0.00-0.04) 10*3/uL Neutrophils # 15.80 H (1.80-7.70) 10*3/uL Lymphocytes # 0.78 L (0.90-5.00) 10*3/uL Monocytes # 1.06 H (0.20-1.00) 10*3/uL Eosinophils # 0.00 L (0.04-0.35) 10*3/uL APTT 21.1 L (22.0-30.0) sec Potassium (3.5-5.1) mmol/L Carbon Dioxide (22-30) mmol/L BUN 24 H (9-20) mg/dL Creatinine 1.45 H (0.66-1.25) mg/dL Glucose 159 H (74-99) mg/dL POC Glucose (mg/dL) (70-110) mg/dL Plasma Lactic Acid Fam (0.7-2.0) mmol/L 02/26/25 02/27/25 02/27/25 Range/Units 22:15 00:25 01:13 WBC (4.50-10.00) 10*3/uL MCH (27.0-32.0) pg MPV (9.5-12.2) fL Immature Gran # (0.00-0.04) 10*3/uL Neutrophils # (1.80-7.70) 10*3/uL Lymphocytes # (0.90-5.00) 10*3/uL Monocytes # (0.20-1.00) 10*3/uL Eosinophils # (0.04-0.35) 10*3/uL APTT (22.0-30.0) sec Potassium (3.5-5.1) mmol/L Carbon Dioxide (22-30) mmol/L BUN (9-20) mg/dL Creatinine (0.66-1.25) mg/dL Glucose (74-99) mg/dL POC Glucose (mg/dL) 196 H (70-110) mg/dL Plasma Lactic Acid Fam 2.3 H* 2.8 H* (0.7-2.0) mmol/L 02/27/25 02/27/25 02/27/25 Range/Units 03:19 03:23 03:52 WBC 12.30 H (4.50-10.00) 10*3/uL MCH 32.4 H (27.0-32.0) pg MPV 8.9 L (9.5-12.2) fL Immature Gran # 0.05 H (0.00-0.04) 10*3/uL Neutrophils # 10.88 H (1.80-7.70) 10*3/uL Lymphocytes # 0.53 L (0.90-5.00) 10*3/uL Monocytes # (0.20-1.00) 10*3/uL Eosinophils # 0.00 L (0.04-0.35) 10*3/uL APTT (22.0-30.0) sec Potassium 5.3 H (3.5-5.1) mmol/L Carbon Dioxide 21 L (22-30) mmol/L BUN 26 H (9-20) mg/dL Creatinine 1.42 H (0.66-1.25) mg/dL Glucose 144 H (74-99) mg/dL POC Glucose (mg/dL) (70-110) mg/dL Plasma Lactic Acid Fam 3.0 H* (0.7-2.0) mmol/L
--- NOTE | 2025-02-27 12:45 | P.CNOR ---
History of Present Illness - [facility] Consult date: 02/27/25 Consult reason: fracture (Left-sided T6 transverse process fracture) History of present illness: Patient is a 70-year-old male who presented to [facility] emergency room yesterday after falling off a ladder and landing on his left side. Patient had underwent immediate imaging and lab test at that time. He was determined he had multiple left-sided rib fractures, CT scan of the chest also picked up a left-sided T6 transverse process fracture. Patient was admitted to [facility] ICU with concerns of flail chest, multiple medical specialties have been placed for evaluation including our orthopedic service. Patient was evaluated today at bedside, he is sitting up in the ICU hospital bed having lunch. He appears to be in no acute distress. He notes movement, deep breaths and laughing reproduce left-sided rib pain. He notes no acute back pain at this time. He denies any paresthesias or carrie weakness of the bilateral upper or lower extremities. He denies any changes in fine motor movement. He denies any loss of bowel or bladder function. He denies any previous surgery to the thoracic spine. Review of Systems Constitutional: Reports as per HPI Past Medical History Past Medical History: Hypertension, Renal Disease History of Any Multi-Drug Resistant Organisms: None Reported Past Surgical History: No Surgical Hx Reported Past Anesthesia/Blood Transfusion Reactions: No Reported Reaction Past Psychological History: No Psychological Hx Reported Smoking Status: Never smoker Past Alcohol Use History: Rare Additional Past Alcohol Use History / Comment(s): Drinks few drinks on the weekends Past Drug Use History: None Reported - Past Family History Father Family Medical History: Cancer Mother Additional Family Medical History / Comment(s): from some kind of abdominal issue for which she did not want surgery Medications and Allergies Home Medications Medication Instructions Recorded Confirmed Type Nebivolol HCl 2.5 mg PO DAILY 02/27/25 02/27/25 History amLODIPine [Norvasc] 10 mg PO DAILY 02/27/25 02/27/25 History Allergies Allergy/AdvReac Type Severity Reaction Status Date / Time No Known Allergies Allergy Verified 02/27/25 10:25 Physical Examination Gen: AOx3, NAD VSS stable at this time Integument: No open lesions or sores are visualized throughout the thoracic spine Palpation: No significant tenderness appreciated to the midline or paraspinal region of the lumbar, thoracic, cervical spine ROM: Full range of motion in all major muscle groups of the bilateral upper and lower extremities, no focal deficits appreciated Sensory Exam: Senory exam to light touch is intact C5-T1 Senosry exam to light touch is intact L2-S1 Motor: Adequate strength noted to the bilateral upper and lower extremities, no carrie deficits appreciated Reflexes: 2/4 in all UE and LE Negative Tuan's Negative clonus Results - Labs Labs: Abnormal Lab Results - Last 24 Hours (Table) 02/26/25 02/26/25 02/26/25 Range/Units 21:25 21:25 21: WBC 17.74 H (4.50-10.00) 10*3/uL MCH (27.0-32.0) pg MPV 8.8 L (9.5-12.2) fL Immature Gran # 0.07 H (0.00-0.04) 10*3/uL Neutrophils # 15.80 H (1.80-7.70) 10*3/uL Lymphocytes # 0.78 L (0.90-5.00) 10*3/uL Monocytes # 1.06 H (0.20-1.00) 10*3/uL Eosinophils # 0.00 L (0.04-0.35) 10*3/uL APTT 21.1 L (22.0-30.0) sec Potassium (3.5-5.1) mmol/L Carbon Dioxide (22-30) mmol/L BUN 24 H (9-20) mg/dL Creatinine 1.45 H (0.66-1.25) mg/dL Glucose 159 H (74-99) mg/dL POC Glucose (mg/dL) (70-110) mg/dL Plasma Lactic Acid Fam (0.7-2.0) mmol/L 02/26/25 02/27/25 02/27/25 Range/Units 22:15 00:25 01:13 WBC (4.50-10.00) 10*3/uL MCH (27.0-32.0) pg MPV (9.5-12.2) fL Immature Gran # (0.00-0.04) 10*3/uL Neutrophils # (1.80-7.70) 10*3/uL Lymphocytes # (0.90-5.00) 10*3/uL Monocytes # (0.20-1.00) 10*3/uL Eosinophils # (0.04-0.35) 10*3/uL APTT (22.0-30.0) sec Potassium (3.5-5.1) mmol/L Carbon Dioxide (22-30) mmol/L BUN (9-20) mg/dL Creatinine (0.66-1.25) mg/dL Glucose (74-99) mg/dL POC Glucose (mg/dL) 196 H (70-110) mg/dL Plasma Lactic Acid Fam 2.3 H* 2.8 H* (0.7-2.0) mmol/L 02/27/25 02/27/25 02/27/25 Range/Units 03:19 03:23 03:52 WBC 12.30 H (4.50-10.00) 10*3/uL MCH 32.4 H (27.0-32.0) pg MPV 8.9 L (9.5-12.2) fL Immature Gran # 0.05 H (0.00-0.04) 10*3/uL Neutrophils # 10.88 H (1.80-7.70) 10*3/uL Lymphocytes # 0.53 L (0.90-5.00) 10*3/uL Monocytes # (0.20-1.00) 10*3/uL Eosinophils # 0.00 L (0.04-0.35) 10*3/uL APTT (22.0-30.0) sec Potassium 5.3 H (3.5-5.1) mmol/L Carbon Dioxide 21 L (22-30) mmol/L BUN 26 H (9-20) mg/dL Creatinine 1.42 H (0.66-1.25) mg/dL Glucose 144 H (74-99) mg/dL POC Glucose (mg/dL) (70-110) mg/dL Plasma Lactic Acid Fam 3.0 H* (0.7-2.0) mmol/L H & H 02/26/25 02/27/25 Range/Units 21:25 03:23 Hgb 16.8 15.7 (13.0-17.0) g/dL Hct 47.1 44.7 (39.6-50.0) % Coagulation 02/26/25 Range/Units 21:25 INR 1.0 (<1.2) Result Diagrams: 02/27/25 03:23 02/27/25 03:19 Assessment and Plan Assessment: Left-sided T6 transverse process fracture Multiple left-sided rib fractures Status post fall from ladder Plan: Imaging: CT scan of the chest report and images reviewed, images demonstrate multiple levels of thoracic and lumbar spondylosis. Left-sided minimally displaced T6 transverse process fracture noted Plan: I was able to discuss the case, this included physical exam findings and imaging studies and my attending Dr. Guerrero's and. No emergent spine surgical intervention recommended at this time Recommend conservative measures, this to include deep breathing exercises, use of Tylenol or [id number] anti-inflammatories or even low-dose muscle relaxer pain medication as needed Patient can weight-bear as tolerated, recommending avoiding excess/heavy lifting Other medical specialty recommendations appreciated GI and GI DVT prophylaxis per primary medical service We will continue to follow patient during hospital stay Time with Patient: Less than 30
--- NOTE | 2025-02-27 13:11 | P.PCN ---
Date of Procedure: 02/27/25 Description of Procedure: Pre- and Post-operative Diagnosis: Left T3-T8 rib fractures, chest wall pain Procedure : Left erector spinae plane nerve block Surgeon: Vandana Tarango Anesthesia: Local: 1% Lidocaine, IV sedation : None Complications: None. Estimated blood loss: None Specimens removed: None Ultrasound guided image: saved to electronic medical records. Indications for Procedure: The patient has been suffering from chest wall pain after T3-T10 rib fracture secondary to fall from ladder. Inadequate pain control with pharmacologic regimen.An erector spinae plane nerve block was scheduled for the patient. Procedure and Findings: The patient was seen and examined in the holding area. The written informed consent was obtained after explaining the risks, benefits, alternatives of the procedure to the patient. The patient was brought to the procedure room and was placed in the prone position on the operating table. A pillow was placed under the upper chest. Standard anesthesia monitoring was done through out the procedure. Timeout was completed. The skin preparation was done with ChloraPrep 1 and draping was done in usual sterile fashion. Sterile technique was observed throughout the procedure. Using curvilinear ultrasound probe, place the transducer in a paramedian sagittal orientation, approximately 2cm away from the midline (spinous processes), and vizualize the transverse process of T5, T8 levels identified. 3 ml of 1% Lidocaine was injected with a 25 gauge needle to achieve adequate local anesthesia of the skin and subcutaneous tissue.Trapezius and erector spinae muscles identified. A 21 gauge, 100mm echogenic needle was placed and gradually advanced up to T5 transverse process, after touch the bony contact retracted back to a few millimeters. After confirming negative aspiration for blood, body fluids, air, paresthesia. 15 mL of block solution injected slowly after negative aspiration every 5 mL of injection under direct visualization of the ultrasound. The block solution containing 29 mL of 0.5% ropivacaine pr eservative-free, and 10 mg dexamethasone. Entire procedure repeated heart T8 level. the needle was removed intact, area was cleaned and bandage was applied. Disposition : The patient tolerated the procedure very well. The patient,, and RN was given detailed instructions for bleeding, infection, increased pain at the injection site, and was advised to seek immediate medical attention should significant side effects develop. The patient will be followed up with our Pain Clinic within 2- 4 weeks for follow-up visit if needed.
--- NOTE | 2025-02-27 13:24 | P.PAINPG ---
Subjective Progress Note Date: 02/27/25 Principal diagnosis: Left-sided chest wall pain secondary to rib fractures Mr. Zhu is a 70-year-old gentleman denies any significant medical history except hypertension and borderline kidney disease, states the only medication he takes is something for blood pressure. He presented to [facility] emergency room yesterday after a fall off a ladder, he fell approximately 8 feet onto concrete and landed on his left side. Denied any loss of consciousness. In the emergency room rib x-ray demonstrated acute mildly displaced left lateral 4 through [address] demonstrated multiple left-sided acute nondisplaced to mildly displaced fractures involving the 2nd through 8th ribs with segmental fractures of the 3rd through 8th ribs concerning for flail chest. He tried conservative therapy, with some relief in his pain. He has a difficulty with activities. According to Mr. Zhu his pain levels are tolerable with the help of medication only when he is lying down not doing any activity. With activity his pain levels are 7-8 out of 10 in severity. I discussed with treatment options including medications, interventional procedures. He would like to try interventional procedure to get better pain relief long with medications. Objective - Vital Signs Vital signs: Vital Signs Temp 98.1 F 02/27/25 08:00 Pulse 61 02/27/25 10:00 Resp 18 02/27/25 10:00 BP 146/74 02/27/25 10:00 Pulse Ox 94 L 02/27/25 10:00 FiO2 Intake & Output 02/26/25 02/27/25 02/27/25 18:59 06:59 18:59 Intake Total 1650 150 Output Total 500 0 Balance 1150 150 Weight 113.398 kg 104 kg Intake: IV 75 Sodium Chloride 0.9% 1, 75 000 ml @ 75 mls/hr IV . [id number] [facility] Rx#:[id number] Intake, IV Titration 150 75 Amount Sodium Chloride 0.9% 1, 150 75 000 ml @ 75 mls/hr IV . [id number] [facility] Rx#:[id number] Oral 1500 Output: Urine 500 0 Other: Voiding Method Urinal - Constitutional General appearance: Present: mild distress - Respiratory Respiratory: bilateral: CTA - Cardiovascular Rhythm: regular Heart sounds: normal: S1, S2 - Neurologic Neurologic: Present: CNII-XII intact - Psychiatric Psychiatric: Present: A&O x's 3 - Labs CBC & Chem 7: 02/27/25 03:23 02/27/25 03:19 Labs: Abnormal Lab Results - Last 24 Hours (Table) 02/26/25 02/26/25 02/26/25 Range/Units 21:25 21:25 21:25 WBC 17.74 H (4.50-10.00) 10*3/uL MCH (27.0-32.0) pg MPV 8.8 L (9.5-12.2) fL Immature Gran # 0.07 H (0.00-0.04) 10*3/uL Neutrophils # 15.80 H (1.80-7.70) 10*3/uL Lymphocytes # 0.78 L (0.90-5.00) 10*3/uL Monocytes # 1.06 H (0.20-1.00) 10*3/uL Eosinophils # 0.00 L (0.04-0.35) 10*3/uL APTT 21.1 L (22.0-30.0) sec Potassium (3.5-5.1) mmol/L Carbon Dioxide (22-30) mmol/L BUN 24 H (9-20) mg/dL Creatinine 1.45 H (0.66-1.25) mg/dL Glucose 159 H (74-99) mg/dL POC Glucose (mg/dL) (70-110) mg/dL Plasma Lactic Acid Fam (0.7-2.0) mmol/L 02/26/25 02/27/25 02/27/25 Range/Units 22:15 00:25 01:13 WBC (4.50-10.00) 10*3/uL MCH (27.0-32.0) pg MPV (9.5-12.2) fL Immature Gran # (0.00-0.04) 10*3/uL Neutrophils # (1.80-7.70) 10*3/uL Lymphocytes # (0.90-5.00) 10*3/uL Monocytes # (0.20-1.00) 10*3/uL Eosinophils # (0.04-0.35) 10*3/uL APTT (22.0-30.0) sec Potassium (3.5-5.1) mmol/L Carbon Dioxide (22-30) mmol/L BUN (9-20) mg/dL Creatinine (0.66-1.25) mg/dL Glucose (74-99) mg/dL POC Glucose (mg/dL) 196 H (70-110) mg/dL Plasma Lactic Acid Fam 2.3 H* 2.8 H* (0.7-2.0) mmol/L 02/27/25 02/27/25 02/27/25 Range/Units 03:19 03:23 03:52 WBC 12.30 H (4.50-10.00) 10*3/uL MCH 32.4 H (27.0-32.0) pg MPV 8.9 L (9.5-12.2) fL Immature Gran # 0.05 H (0.00-0.04) 10*3/uL Neutrophils # 10.88 H (1.80-7.70) 10*3/uL Lymphocytes # 0.53 L (0.90-5.00) 10*3/uL Monocytes # (0.20-1.00) 10*3/uL Eosinophils # 0.00 L (0.04-0.35) 10*3/uL APTT (22.0-30.0) sec Potassium 5.3 H (3.5-5.1) mmol/L Carbon Dioxide 21 L (22-30) mmol/L BUN 26 H (9-20) mg/dL Creatinine 1.42 H (0.66-1.25) mg/dL Glucose 144 H (74-99) mg/dL POC Glucose (mg/dL) (70-110) mg/dL Plasma Lactic Acid Fam 3.0 H* (0.7-2.0) mmol/L Assessment and Plan Assessment: Acute chest wall pain secondary to left side rib fractures Plan: #1 Diagnoses, prognosis, and multiple treatment options including but not limited to physical therapy, interventional therapy, adjunct medication therapy, narcotic medication, and surgical options were discussed with the patient. And all questions were answered to the patient's satisfaction. #2 treatment plan agreement : Patient was thoroughly discussed regarding the treatment options, alternatives, and importance of exercises as tolerated. Patient clearly understood. # 3 interventional procedures: Left side erector spinae plane block using ultrasound guidance. procedure, complications, alternatives discussed with the patient. #4 medications #1 Lidoderm patch 5% every 12 hours on every 12 hours of over the affected area #2 Neurontin 300 mg p.o. every 12 hours #3 Zanaflex 2 mg p.o. every 8 hours for muscle relaxant #4 [place] 5/325 p.o. every 6 hours #5 Dilaudid 0.5 mg IV every 3 hours to every 4 hours as needed for first 48 hours Medication side effects, complications, long-term consequences discussed with the patient. Patient recommended to contact the pain clinic if noticed any issues with given medications. Thank you for consulting pain management team. Please feel free to contact if you have any questions regarding patient care management. Time with Patient: Less than 30 PQRS Measure Charge Sheet Measure #130: Documentation of Current Meds in Medical Chart: Patient's medications documented in chart - Pain Location Left Chest Non-Pharmacological Interventions: Reduce Environmental Stimuli, Relaxation Technique Pharmacological Interventions: PRN Medication PQRS Narrative: Blood Pressure 146/74 Pain Intensity [Left Chest] 9 Pain Intensity 5 Pain Scale Used Numeric (1 - 10) Scale Used Numeric (1 - 10) Home Medications: Ambulatory Orders Nebivolol HCl 2.5 mg PO DAILY 02/27/25 amLODIPine [Norvasc] 10 mg PO DAILY 02/27/25 Controlled Substance Measures - Controlled Substance Measures Is patient prescribed a controlled substance at discharge?: Yes When asked, does pt state using other controlled substances?: Yes If prescribed controlled substance>3 days was MAPS reviewed?: No If Rx opioid, was Start Talking consent form obtained?: Yes If opioid is for acute pain is fill amount 7 days or less?: No Was information provided regarding opioid addiction?: Yes
--- NOTE | 2025-02-27 14:38 | P.GSHP ---
History of Present Illness H&P Date: 02/27/25 CHIEF COMPLAINT: Fall from ladder with left-sided rib pain HISTORY OF PRESENT ILLNESS: This is a 70-year-old male who presented to the ER after a fall from about 8 feet off of a ladder. He landed on the left side of his chest with evidence of multiple left-sided rib fractures on CT scan. Patient denies any loss of consciousness denies any abdominal pain. Does report increased pain with taking a deep breath or any movement. He has as scheduled to be evaluated by pain management service for block today. CT scan of the chest reports multiple left-sided acute nondisplaced mildly displaced fractures involving the second and 3rd through 8th ribs. There are segmental fractures of the 3rd through 8th ribs. That raise concerns for flail chest. Nondisplaced acute left T6 transverse process fracture. There is associated trace pneumothorax left pleural effusion and subcutaneous emphysema. Bibasilar patchy opacities likely representing pulmonary contusions and/or atelectasis. Patient denies being on any blood thinners. Patient admitted to trauma service. Patient admitted to the ICU. PAST MEDICAL HISTORY: See below PAST SURGICAL HISTORY: See below MEDICATIONS: See below ALLERGIES: See below SOCIAL HISTORY: No illicit drug use. REVIEW OF SYSTEMS: CONSTITUTIONAL: Denies fever or chills. HEENT: Denies blurred vision, vision changes, or eye pain. Denies hemoptysis CARDIOVASCULAR: Denies chest pain or pressure. RESPIRATORY: No shortness of breath. GASTROINTESTINAL: See HPI for pertinent findings HEMATOLOGIC: Denies bleeding disorders. GENITOURINARY: Denies any blood in urine or increased urinary frequency. SKIN: Denies pruitis. Denies rash. PHYSICAL EXAM: VITAL SIGNS: Reviewed GENERAL: Well-developed in no acute distress. CHEST: Tenderness with palpation along the left side of the chest wall. Chest expands equally bilaterally. No use of pickling grader muscles. HEENT: No sclera icterus. Extraocular movements grossly intact. Moist buccal mucosa. Head is atraumatic, normocephalic. No nasal drainage. ABDOMEN: Soft. Nondistended. Nontender NEUROLOGIC: Alert and oriented. Cranial nerves II through XII grossly intact. LABORATORY DATA: WBC 17 down to 12.3 Hgb 15.7 platelets 202 Sodium is 140 potassium is 5.3 creatinine 1.42 Lactic acid 2.3 down to 1.7 LFTs normal IMAGING: Chest CT multiple left-sided acute nondisplaced to mildly displaced fractures with involving the second and 3rd through 8th ribs. There are segmental fractures of the 3rd through 8th ribs. Raises concern for flail chest. Additional nondisplaced acute left T6 transverse process fracture. Trace pneumothorax left pleural effusion subcutaneous emphysema. Bibasilar patchy opacities likely representing pulmonary contusions and/or atelectasis. Chest x-ray there is at least 1 left-sided rib fracture present all of left ribs 3 through 8. Low lung volumes with generalized hazy appearance which could represent atelectasis versus pulmonary edema ASSESSMENT: 1. Fall from 8 feet with trauma to left side of chest 2. Multiple left-sided acute nondisplaced mildly displaced fractures involving the second and 3rd through 8th ribs. There are segmental fractures of the 3rd through 8th ribs. No evidence of flail chest. Chest expands equally, no paradoxical movement of chest 3. Nondisplaced acute left T6 transverse process fracture 4. Trace left-sided pleural effusion, likely hemothorax 5. Bibasilar pulmonary contusions 6. Acute possible chronic kidney injury PLAN: - Dilaudid 1 mg IV every 3 hours as needed for pain, [place] 5 mg every 4 hours as needed for pain and Robaxin added for pain management - Continue Lidoderm patch - Pain management consulted and planning to proceed with nerve block today - Consults spinal service regarding spine fracture - Consult pulmonary service regarding rib fractures - Consult placed for cardiothoracic team regarding possible flail chest - Consult medicine service for medical management - Continue regular diet - Encourage incentive spirometer use - Continue IV fluids -GI prophylaxis Pepcid and DVT prophylaxis SC Heparin Physician [employer] Rep[employer] Instructor note has been reviewed by physician. Signing provider agrees with the documented findings, assessment, and plan of care. Past Medical History Past Medical History: Hypertension, Renal Disease History of Any Multi-Drug Resistant Organisms: None Reported Past Surgical History: No Surgical Hx Reported Past Anesthesia/Blood Transfusion Reactions: No Reported Reaction Past Psychological History: No Psychological Hx Reported Smoking Status: Never smoker Past Alcohol Use History: Rare Additional Past Alcohol Use History / Comment(s): Drinks few drinks on the w eekends Past Drug Use History: None Reported - Past Family History Father Family Medical History: Cancer Mother Additional Family Medical History / Comment(s): from some kind of abdominal issue for which she did not want surgery Medications and Allergies Home Medications Medication Instructions Recorded Confirmed Type Nebivolol HCl 2.5 mg PO DAILY 02/27/25 02/27/25 History amLODIPine [Norvasc] 10 mg PO DAILY 02/27/25 02/27/25 History Allergies Allergy/AdvReac Type Severity Reaction Status Date / Time No Known Allergies Allergy Verified 02/27/25 10:25 Surgical - Exam Vital Signs Temp Pulse Resp BP Pulse Ox 98.1 F 62 18 147/74 95 02/26/25 17:55 02/26/25 17:55 02/26/25 17:55 02/26/25 17:55 02/26/25 17:55 Results - Labs 02/27/25 03:23 02/27/25 03:19 Abnormal Lab Results - Last 24 Hours (Table) 02/26/25 02/26/25 02/26/25 Range/Units 21:25 21:25 21:25 WBC 17.74 H (4.50-10.00) 10*3/uL MCH (27.0-32.0) pg MPV 8.8 L (9.5-12.2) fL Immature Gran # 0.07 H (0.00-0.04) 10*3/uL Neutrophils # 15.80 H (1.80-7.70) 10*3/uL Lymphocytes # 0.78 L (0.90-5.00) 10*3/uL Monocytes # 1.06 H (0.20-1.00) 10*3/uL Eosinophils # 0.00 L (0.04-0.35) 10*3/uL APTT 21.1 L (22.0-30.0) sec Potassium (3.5-5.1) mmol/L Carbon Dioxide (22-30) mmol/L BUN 24 H (9-20) mg/dL Creatinine 1.45 H (0.66-1.25) mg/dL Glucose 159 H (74-99) mg/dL POC Glucose (mg/dL) (70-110) mg/dL Plasma Lactic Acid Fam (0.7-2.0) mmol/L 02/26/25 02/27/25 02/27/25 Range/Units 22:15 00:25 01:13 WBC (4.50-10.00) 10*3/uL MCH (27.0-32.0) pg MPV (9.5-12.2) fL Immature Gran # (0.00-0.04) 10*3/uL Neutrophils # (1.80-7.70) 10*3/uL Lymphocytes # (0.90-5.00) 10*3/uL Monocytes # (0.20-1.00) 10*3/uL Eosinophils # (0.04-0.35) 10*3/uL APTT (22.0-30.0) sec Potassium (3.5-5.1) mmol/L Carbon Dioxide (22-30) mmol/L BUN (9-20) mg/dL Creatinine (0.66-1.25) mg/dL Glucose (74-99) mg/dL POC Glucose (mg/dL) 196 H (70-110) mg/dL Plasma Lactic Acid Fam 2.3 H* 2.8 H* (0.7-2.0) mmol/L 02/27/25 02/27/25 02/27/25 Range/Units 03:19 03:23 03:52 WBC 12.30 H (4.50-10.00) 10*3/uL MCH 32.4 H (27.0-32.0) pg MPV 8.9 L (9.5-12.2) fL Immature Gran # 0.05 H (0.00-0.04) 10*3/uL Neutrophils # 10.88 H (1.80-7.70) 10*3/uL Lymphocytes # 0.53 L (0.90-5.00) 10*3/uL Monocytes # (0.20-1.00) 10*3/uL Eosinophils # 0.00 L (0.04-0.35) 10*3/uL APTT (22.0-30.0) sec Potassium 5.3 H (3.5-5.1) mmol/L Carbon Dioxide 21 L (22-30) mmol/L BUN 26 H (9-20) mg/dL Creatinine 1.42 H (0.66-1.25) mg/dL Glucose 144 H (74-99) mg/dL POC Glucose (mg/dL) (70-110) mg/dL Plasma Lactic Acid Fam 3.0 H* (0.7-2.0) mmol/L Diabetes panel 02/26/25 02/27/25 Range/Units 21:25 03:19 Sodium 141 140 (137-145) mmol/L Potassium 4.6 5.3 H (3.5-5.1) mmol/L Chloride 105 107 (98-107) mmol/L Carbon Dioxide 24 21 L (22-30) mmol/L BUN 24 H 26 H (9-20) mg/dL Creatinine 1.45 H 1.42 H (0.66-1.25) mg/dL Glucose 159 H 144 H (74-99) mg/dL Calcium 10.0 9.8 (8.4-10.2) mg/dL AST 36 (17-59) U/L ALT 23 (4-49) U/L Alkaline Phosphatase 80 (38-126) U/L Total Protein 7.4 (6.3-8.2) g/dL Albumin 4.7 (3.5-5.0) g/dL Calcium panel 02/26/25 02/27/25 Range/Units 21:25 03:19 Calcium 10.0 9.8 (8.4-10.2) mg/dL Albumin 4.7 (3.5-5.0) g/dL Pituitary panel 02/26/25 02/27/25 Range/Units 21:25 03:19 Sodium 141 140 (137-145) mmol/L Potassium 4.6 5.3 H (3.5-5.1) mmol/L Chloride 105 107 (98-107) mmol/L Carbon Dioxide 24 21 L (22-30) mmol/L BUN 24 H 26 H (9-20) mg/dL Creatinine 1.45 H 1.42 H (0.66-1.25) mg/dL Glucose 159 H 144 H (74-99) mg/dL Calcium 10.0 9.8 (8.4-10.2) mg/dL Adrenal panel 02/26/25 02/27/25 Range/Units 21:25 03:19 Sodium 141 140 (137-145) mmol/L Potassium 4.6 5.3 H (3.5-5.1) mmol/L Chloride 105 107 (98-107) mmol/L Carbon Dioxide 24 21 L (22-30) mmol/L BUN 24 H 26 H (9-20) mg/dL Creatinine 1.45 H 1.42 H (0.66-1.25) mg/dL Glucose 159 H 144 H (74-99) mg/dL Calcium 10.0 9.8 (8.4-10.2) mg/dL Total Bilirubin 0.9 (0.2-1.3) mg/dL AST 36 (17-59) U/L ALT 23 (4-49) U/L Alkaline Phosphatase 80 (38-126) U/L Total Protein 7.4 (6.3-8.2) g/dL Albumin 4.7 (3.5-5.0) g/dL
[2025-02-27] MEDS: HEPARIN SODIUM,PORCINE 5,000 UNIT/ML 1 ML VIAL SQ SCH (16:44)
[2025-02-27] MEDS: FAMOTIDINE 20 MG TAB PO SCH (19:50)
--- NOTE | 2025-02-28 08:18 | P.PN ---
Progress Note - Text Progress Note Date: 02/28/25 Patient seen and examined. No acute events overnight. Pain is controlled. PHYSICAL EXAM: VITAL SIGNS: Reviewed GENERAL: Well-developed in no acute distress. CHEST: Tenderness with palpation along the left side of the chest wall. Chest expands equally bilaterally. No use of nurse assessor muscles. HEENT: No sclera icterus. Extraocular movements grossly intact. Moist buccal mucosa. Head is atraumatic, normocephalic. No nasal drainage. ABDOMEN: Soft. Nondistended. Nontender NEUROLOGIC: Alert and oriented. Cranial nerves II through XII grossly intact. ASSESSMENT: 1. Fall from 8 feet with trauma to left side of chest 2. Multiple left-sided acute nondisplaced mildly displaced fractures involving the second and 3rd through 8th ribs. There are segmental fractures of the 3rd through 8th ribs. No evidence of flail chest. Chest expands equally, no paradoxical movement of chest 3. Nondisplaced acute left T6 transverse process fracture 4. Trace left-sided pleural effusion, likely hemothorax 5. Bibasilar pulmonary contusions 6. Acute possible chronic kidney injury PLAN: - Pain Control - Continue Lidoderm patch - Pain management consulted for nerve block - Consults/Recs spinal service regarding spine fracture - Consult/Recs pulmonary service regarding rib fractures - Consult/Recs cardiothoracic team regarding possible flail chest - Consult/Recs medicine service for medical management - Continue regular diet - Encourage incentive spirometer use - Continue IV fluids -GI prophylaxis Pepcid and DVT prophylaxis SC Heparin Manuel Jurado DO [facility] [phone]
[2025-02-28 08:43] LABS: Basophils # (A) 0.03 10*3/uL (0.00-0.10); Basophils % (A) 0.2 %; HCT 48.6 % (39.6-50.0); HGB 16.6 g/dL (13.0-17.0); Lymphocytes # (A) 0.87 10*3/uL (0.90-5.00); Lymphocytes % (A) 4.7 %; MCHC 34.2 g/dL (32.0-37.0); MCV 90.8 fL (80.0-97.0); Monocytes # (A) 0.79 10*3/uL (0.20-1.00); Monocytes % (A) 4.3 %; Neutrophils # (A) 16.56 10*3/uL (1.80-7.70); Neutrophils % (A) 90.2 %; Platelet Count 199 10*3/uL (140-440); RBC 5.35 10*6/uL (4.40-5.60); RDW 12.8 % (11.5-14.5); WBC 18.36 10*3/uL (4.50-10.00)
[2025-02-28 09:20] LABS: African American GFR (CKD) 78 (>60 ml/min/1.73 sqM); Anion Gap 16 mmol/L; Blood Urea Nitrogen 22 mg/dL (9-20); Carbon Dioxide 15 mmol/L (22-30); Chloride 108 mmol/L (98-107); Glucose 109 mg/dL (74-99); Non-African American GFR(CKD) 67 (>60 ml/min/1.73 sqM); Sodium 139 mmol/L (137-145)
[2025-02-28 09:24] LABS: Potassium 5.3 mmol/L (3.5-5.1)
--- NOTE | 2025-02-28 12:16 | P.PN ---
Subjective Progress Note Date: 02/28/25 Principal diagnosis: Multiple left-sided rib fractures, T6 left-sided transverse process fracture Patient evaluated at bedside, he is off the ICU and on the cardiac stepdown unit. Patient was visualized sitting up in the chair in no apparent distress. He does admit discomforts of the left flank and rib area with movement and deep breathing. Pain seems to be manage, he was evaluated by anesthesia and did receive a nerve block. No other orthopedic complaints at this time Objective - Vital Signs Vital signs: Vital Signs Temp 98.2 F 02/28/25 08:00 Pulse 61 02/28/25 08:00 Resp 20 02/28/25 08:00 BP 156/78 02/28/25 08:00 Pulse Ox 94 L 02/28/25 08:00 FiO2 Intake & Output 02/27/25 02/28/25 02/28/25 18:59 06:59 18:59 Intake Total 270 20 780 Output Total 500 Balance -230 20 780 Weight 99.2 kg Intake: IV 75 20 Invasive Line 1 10 Invasive Line 2 10 Sodium Chloride 0.9% 1, 75 000 ml @ 75 mls/hr IV . [id number] [facility] Rx#:[id number] Intake, IV Titration 75 Amount Sodium Chloride 0.9% 1, 75 000 ml @ 75 mls/hr IV . [id number] [facility] Rx#:[id number] Oral 120 780 Output: Urine 500 Other: Voiding Method Urinal Urinal Toilet Urinal # Voids 1 1 - Exam Gen: AOx3, NAD VSS stable at this time Integument: No open lesions or sores are visualized throughout the thoracic spine Palpation: No significant tenderness appreciated to the midline or paraspinal region of the lumbar, thoracic, cervical spine ROM: Full range of motion in all major muscle groups of the bilateral upper and lower extremities, no focal deficits appreciated Sensory Exam: Senory exam to light touch is intact C5-T1 Senosry exam to light touch is intact L2-S1 Motor: Adequate strength noted to the bilateral upper and lower extremities, no carrie deficits appreciated Reflexes: 2/4 in all UE and LE Negative Tuan's Negative clonus - Labs CBC & Chem 7: 02/28/25 08:28 02/28/25 08:28 Labs: Abnormal Lab Results - Last 24 Hours (Table) 02/28/25 02/28/25 Range/Units 08:28 08:28 WBC 18.36 H (4.50-10.00) 10*3/uL MPV 9.0 L (9.5-12.2) fL Immature Gran # 0.11 H (0.00-0.04) 10*3/uL Neutrophils # 16.56 H (1.80-7.70) 10*3/uL Lymphocytes # 0.87 L (0.90-5.00) 10*3/uL Eosinophils # 0.00 L (0.04-0.35) 10*3/uL Potassium 5.3 H (3.5-5.1) mmol/L Chloride 108 H (98-107) mmol/L Carbon Dioxide 15 L (22-30) mmol/L BUN 22 H (9-20) mg/dL Glucose 109 H (74-99) mg/dL Assessment and Plan Assessment: Left-sided T6 transverse process fracture Multiple left-sided rib fractures Status post fall from ladder Plan: Plan: I was able to discuss the case, this included physical exam findings and imaging studies and my attending Dr. Jiang. No emergent spine surgical intervention recommended at this time Continue conservative measures, this to include deep breathing exercises, use of Tylenol or [id number] anti-inflammatories or even low-dose muscle relaxer pain medication as needed Patient can weight-bear as tolerated, recommending avoiding excess/heavy lifting Other medical specialty recommendations appreciated GI and GI DVT prophylaxis per primary medical service Orthopedically patient remained stable at this time, follow-up information will be placed in chart Time with Patient: Less than 30
--- NOTE | 2025-02-28 14:53 | P.PN ---
Subjective Progress Note Date: 02/28/25 70-year-old patient, with chronic medical condition include hypertension chronic kidney disease. Patient was in his garage on the ladder. And coming down after putting up stuff patient to grab staff and fell. Injury on his left side. X-ray showed displaced mildly left lateral 4-8 rib fractures. No pneumothorax was identified. CT scan did show some segmental fractures of the 3rd through 8th ribs. In view of that patient was moved to the ICU. But it was decided patient does not have any flail chest. Having significant pain. Slight cough 02/28. Patient seen and examined. Labs reviewed showed WBC 18.36, hemoglobin 16.6, sodium 139, potassium 5.3, BUN 22, creatinine 1.11. Currently on room air. Still complaining of pain in the ribs REVIEW OF SYSTEMS: CONSTITUTIONAL: No fever, no malaise,. CARDIOVASCULAR: No chest pain, no palpitations, no syncope. PULMONARY: No shortness of breath, no cough, GASTROINTESTINAL: No diarrhea, no nausea, no vomiting, no abdominal pain. NEUROLOGICAL: No headaches, no weakness, PHYSICAL EXAMINATION: GENERAL: The patient is alert and oriented x3, not in any acute distress. Well developed, well nourished. HEENT: Pupils are round and equally reacting to light. EOMI. No scleral icterus. No conjunctival pallor. Normocephalic, atraumatic. No pharyngeal erythema. No thyromegaly. CARDIOVASCULAR: S1 and S2 present. No murmurs, rubs, or gallops. PULMONARY: Diminished breath sound at the bases, no wheezing or crackles. ABDOMEN: Soft, nontender, nondistended, normoactive bowel sounds. No palpable organomegaly. MUSCULOSKELETAL: No joint swelling or deformity. EXTREMITIES: No cyanosis, clubbing, or pedal edema. NEUROLOGICAL: Gross neurological examination did not reveal any focal deficits. SKIN: No rashes. Assessment and plan Acute left-sided nondisplaced to mildly displaced fracture involving the 2nd t hrough 8th ribs. Segmental fractures through third through the eighth rib. No flail chest. Continue pain management - Nondisplaced acute left T6 transverse process fracture secondary to fall - Trace left-sided pneumothorax secondary to above. Aggressive bronchopulmonary hygiene follow clinically - Left pleural effusion/bilateral patchy opacity likely representing pulmonary contusion. - Essential hypertension Continue bysystolic - Chronic kidney disease, stage III likely nephrosclerosis - Lactic acidosis type II. No clinical evidence of infection - Leukocytosis, likely reactive Labs and medication were reviewed.. Continue same treatment. Continue with symptomatic treatment. Resume home medication. Monitor labs and vitals. DVT and GI prophylaxis. Further recommendations as per clinical course of the patient Dictation was produced using [employer] dictation software. please excuse any grammatical, word or spelling errors. Objective - Vital Signs Vital signs: Vital Signs Temp 98.2 F 02/28/25 08:00 Pulse 55 L 02/28/25 12:00 Resp 19 02/28/25 12:00 BP 122/71 02/28/25 12:00 Pulse Ox 95 02/28/25 12:00 FiO2 Intake & Output 02/27/25 02/28/25 02/28/25 18:59 06:59 18:59 Intake Total 003 51 1435 Output Total 500 Balance -324 53 7684 Weight 99.2 kg Intake: IV 75 20 Invasive Line 1 10 Invasive Line 2 10 Sodium Chloride 0.9% 1, 75 000 ml @ 75 mls/hr IV . [id number] MILAGROS Rx#:[id number] Intake, IV Titration 75 Amount Sodium Chloride 0.9% 1, 75 000 ml @ 75 mls/hr IV . [id number] [facility]ROS Rx#:[id number] Oral 120 1002 Output: Urine 500 Other: Voiding Method Urinal Urinal Toilet Urinal # Voids 1 1 - Labs CBC & Chem 7: 02/28/25 08:28 02/28/25 08:28 Labs: Abnormal Lab Results - Last 24 Hours (Table) 02/28/25 02/28/25 Range/Units 08:28 08:28 WBC 18.36 H (4.50-10.00) 10*3/uL MPV 9.0 L (9.5-12.2) fL Immature Gran # 0.11 H (0.00-0.04) 10*3/uL Neutrophils # 16.56 H (1.80-7.70) 10*3/uL Lymphocytes # 0.87 L (0.90-5.00) 10*3/uL Eosinophils # 0.00 L (0.04-0.35) 10*3/uL Potassium 5.3 H (3.5-5.1) mmol/L Chloride 108 H (98-107) mmol/L Carbon Dioxide 15 L (22-30) mmol/L BUN 22 H (9-20) mg/dL Glucose 109 H (74-99) mg/dL
--- NOTE | 2025-02-28 18:30 | P.PN ---
Subjective Progress Note Date: 02/28/25 Patient is a 70-year-old male came to the emergency department yesterday evening after a fall from a ladder. He fell approximately 8 feet onto concrete. Landed on his left side. Denies any head trauma or loss of consciousness. Denies any anticoagulants. His chief complaint was left lateral chest pain. Workup in the emergency department including a CT of the chest demonstrating multiple left-sided acute nondisplaced to mildly displaced fractures involving the left 2nd through 8th ribs, with segmental fractures of 3rd through 8th ribs. Concern for flail chest. Trace left inferior pneumothorax and trace pleural effusion. Bilateral atelectasis or pulmonary contusion. Small amount of subcutaneous emphysema. Additional, nondisplaced acute left T6 transverse process fracture. Labs including a CBC with a WBC count of 7.7, hemoglobin 16.8, platelets 237. BMP: Sodium 141, potassium 4.6, chloride 105, serum bicarb 24, BUN 24, creatinine 1.45, glucose 159. Lactic 2.3 and now 2.8. LFTs unremarkable. Patient currently being evaluated in the intensive care unit. He is on room air. No acute distress. Trachea midline. Equal breath sounds. No paradoxical chest wall movement. No palpable subcu emphysema or crepitus. Continues to report left lateral chest wall pain with movement and deep breathing. Rated 10/10. Morphine is ordered as needed. His incentive spirometer is at bedside. Current vital signs: Heart rate 63 bpm, blood pressure 133/76 mmHg, nontachypneic, SpO2 92% on room air. On 02/28/2025, the patient is receiving adequate pain control. Remains on Dilaudid 1 mg every 3 hours on a as needed basis. Also wearing a lidocaine patch and he is also on Robaxin and [place] 5/325 every 4 hours. Using incentive spirometer. Remains on room air oxygen. Pulse ox 96% room air and there is no significant desaturations. Ambulating. Hemodynamically stable. Blood work melissa ws a WBC count of 18.3, hemoglobin 16.6 and a platelet count of 199. Serum bicarb is at 15. Sodium levels at 139 and a potassium level is at 5.3. BUN is 22 with a creatinine of 1.1. Lactic acid level is down to 1.7. Tolerating diet. No nausea. No emesis. No other significant events overnight. He remains on heparin subcu for DVT prophylaxis. Objective - Vital Signs Vital signs: Vital Signs Temp 98.2 F 02/28/25 08:00 Pulse 61 02/28/25 08:00 Resp 20 02/28/25 08:00 BP 156/78 02/28/25 08:00 Pulse Ox 94 L 02/28/25 08:00 FiO2 Intake & Output 02/27/25 02/28/25 02/28/25 18:59 06:59 18:59 Intake Total 270 20 780 Output Total 500 Balance -230 20 780 Weight 99.2 kg Intake: IV 75 20 Invasive Line 1 10 Invasive Line 2 10 Sodium Chloride 0.9% 1, 75 000 ml @ 75 mls/hr IV . [id number] [facility] Rx#:[id number] Intake, IV Titration 75 Amount Sodium Chloride 0.9% 1, 75 000 ml @ 75 mls/hr IV . [id number] [facility]ROS Rx#:[id number] Oral 120 780 Output: Urine 500 Other: Voiding Method Urinal Urinal Toilet Urinal # Voids 1 1 - Exam GENERAL EXAM: Alert, 70-year-old male, on room air, fairly comfortable in no apparent distress. HEAD: Normocephalic and atraumatic EYES: Normal reaction of pupils, equal size. NOSE: Clear with pink turbinates. THROAT: No erythema or exudates. NECK: No masses, no JVD. Trachea midline. CHEST: No paradoxical chest wall movement. No significant crepitus or subcutaneous emphysema. No ecchymosis. LUNGS: Equal air entry with no crackles, wheeze, rhonchi or dullness. No conversational dyspnea or accessory muscle use.. CVS: S1 and S2 normal with no audible murmur, regular rhythm. No extra heart sounds ABDOMEN: No hepatosplenomegaly, active bowel sounds, no guarding or rigidity. SPINE: No scoliosis or deformity SKIN: No rashes. Ecchymosis, left lateral abdomen CENTRAL NERVOUS SYSTEM: No focal deficits, tone is normal in all 4 extremities. EXTREMITIES: There is mild bilateral nonpitting edema. No clubbing or cyanosis. Peripheral pulses are intact. - Labs CBC & Chem 7: 02/28/25 08:28 02/28/25 08:28 Labs: Abnormal Lab Results - Last 24 Hours (Table) 05/17/25 05/17/25 Range/Units 08:28 08:28 WBC 18.36 H (4.50-10.00) 10*3/uL MPV 9.0 L (9.5-12.2) fL Immature Gran # 0.11 H (0.00-0.04) 10*3/uL Neutrophils # 16.56 H (1.80-7.70) 10*3/uL Lymphocytes # 0.87 L (0.90-5.00) 10*3/uL Eosinophils # 0.00 L (0.04-0.35) 10*3/uL Potassium 5.3 H (3.5-5.1) mmol/L Chloride 108 H (98-107) mmol/L Carbon Dioxide 15 L (22-30) mmol/L BUN 22 H (9-20) mg/dL Glucose 109 H (74-99) mg/dL Assessment and Plan Assessment: Acute nondisplaced to mildly displaced fractures involving left 2nd through 8th ribs with segmental fractures from 3rd through 8th ribs. Clinically, no paradoxical chest wall movement. The patient remained stable and the patient continues to receive pain control, currently on [place], Dilaudid, and a lidocaine patch. Trace left-sided pleural effusion, likely hemothorax, minimal Trace left-sided pneumothorax, not clinically significant Bibasilar atelectasis versus pulmonary contusion Acute dyspnea, secondary to combination of above, improving Fall from ladder Hypertension Acute versus chronic kidney disease Obesity, BMI 33.9 kg/m Plan: Oxygenation remained stable Continues incentive spirometer Pain management with IV Dilaudid as needed and [place] and lidocaine patch. The patient is also on Robaxin. Encourage pulmonary toileting hourly, incentive spirometer at bedside No need for thoracotomy tube Repeat chest x-ray in the morning Patient is ambulating. Will continue to follow.
[2025-02-28] MEDS: methocarbamoL 500 MG TAB PO PRN (20:26)
--- NOTE | 2025-03-01 06:49 | XR ---
Chest, 2 view. CLINICAL INDICATION: Male, 70 years old with history of follow up COMPARISON: 02/27/2025 TECHNIQUE: PA and lateral views the chest are obtained. FINDINGS: There is stable linear opacities in the left lower lobe likely atelectasis. There is no pleural effusion or pneumothorax. The heart, pulmonary vasculature, mediastinum and suleiman appear normal. There are multiple displaced left rib fractures unchanged compared to prior study. IMPRESSION: 1. No change in the multiple displaced left rib fractures. 2. No change in the left lower lobe infiltrate, likely atelectasis. [facility], , 03/01/2025 6:46 AM
[2025-03-01 08:40] LABS: Basophils # (A) 0.02 10*3/uL (0.00-0.10); Basophils % (A) 0.2 %; Eosinophils # (A) 0.02 10*3/uL (0.04-0.35); Eosinophils % (A) 0.2 %; HCT 45.4 % (39.6-50.0); HGB 15.4 g/dL (13.0-17.0); Lymphocytes # (A) 1.28 10*3/uL (0.90-5.00); MCHC 33.9 g/dL (32.0-37.0); MCV 91.3 fL (80.0-97.0); Monocytes # (A) 0.87 10*3/uL (0.20-1.00); Monocytes % (A) 8.8 %; Neutrophils # (A) 7.62 10*3/uL (1.80-7.70); Neutrophils % (A) 77.5 %; Platelet Count 174 10*3/uL (140-440); RBC 4.97 10*6/uL (4.40-5.60); RDW 13.1 % (11.5-14.5); WBC 9.84 10*3/uL (4.50-10.00)
[2025-03-01 09:14] LABS: African American GFR (CKD) 68 (>60 ml/min/1.73 sqM); Anion Gap 14 mmol/L; Blood Urea Nitrogen 23 mg/dL (9-20); Calcium 9.3 mg/dL (8.4-10.2); Carbon Dioxide 16 mmol/L (22-30); Chloride 108 mmol/L (98-107); Glucose 117 mg/dL (74-99); Non-African American GFR(CKD) 59 (>60 ml/min/1.73 sqM); Potassium 4.1 mmol/L (3.5-5.1); Sodium 138 mmol/L (137-145)
--- NOTE | 2025-03-01 11:33 | P.PN ---
Progress Note - Text Progress Note Date: 03/01/25 Patient seen and examined. No acute events overnight. Pain is controlled. PHYSICAL EXAM: VITAL SIGNS: Reviewed GENERAL: Well-developed in no acute distress. CHEST: Tenderness with palpation along the left side of the chest wall. Chest expands equally bilaterally. 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 HEENT: No sclera icterus. Extraocular movements grossly intact. Moist buccal mucosa. Head is atraumatic, normocephalic. No nasal drainage. ABDOMEN: Soft. Nondistended. Nontender NEUROLOGIC: Alert and oriented. Cranial nerves II through XII grossly intact. ASSESSMENT: 1. Fall from 8 feet with trauma to left side of chest 2. Multiple left-sided acute nondisplaced mildly displaced fractures involving the second and 3rd through 8th ribs. There are segmental fractures of the 3rd through 8th ribs. No evidence of flail chest. Chest expands equally, no paradoxical movement of chest 3. Nondisplaced acute left T6 transverse process fracture 4. Trace left-sided pleural effusion, likely hemothorax 5. Bibasilar pulmonary contusions 6. Acute possible chronic kidney injury PLAN: - Pain Control - Continue Lidoderm patch - Pain management consulted for nerve block - Consults/Recs spinal service regarding spine fracture - Consult/Recs pulmonary service regarding rib fractures - Consult/Recs cardiothoracic team regarding possible flail chest - Consult/Recs medicine service for medical management - Continue regular diet - Encourage incentive spirometer use - Continue IV fluids -GI prophylaxis Pepcid and DVT prophylaxis SC Heparin Manuel Jurado DO [facility] [phone]
--- NOTE | 2025-03-01 12:38 | P.PN ---
Subjective Progress Note Date: 03/01/25 70-year-old patient, with chronic medical condition include hypertension chronic kidney disease. Patient was in his garage on the ladder. And coming down after putting up stuff patient to grab staff and fell. Injury on his left side. X-ray showed displaced mildly left lateral 4-8 rib fractures. No pneumothorax was identified. CT scan did show some segmental fractures of the 3rd through 8th ribs. In view of that patient was moved to the ICU. But it was decided patient does not have any flail chest. Having significant pain. Slight cough 02/28. Patient seen and examined. Labs reviewed showed WBC 18.36, hemoglobin 16.6, sodium 139, potassium 5.3, BUN 22, creatinine 1.11. Currently on room air. Still complaining of pain in the ribs 03/01. Patient seen examined. Sitting upright in the chair. No acute issues overnight states pain is better controlled. Labs reviewed showed WBC 9.4, hemoglobin 10.4, platelet count 174, sodium 138, potassium 4.1, BUN 23, creatinine 1.24 REVIEW OF SYSTEMS: CONSTITUTIONAL: No fever, no malaise,. CARDIOVASCULAR: No chest pain, no palpitations, no syncope. PULMONARY: No shortness of breath, no cough, GASTROINTESTINAL: No diarrhea, no nausea, no vomiting, no abdominal pain. NEUROLOGICAL: No headaches, no weakness, PHYSICAL EXAMINATION: GENERAL: The patient is alert and oriented x3, not in any acute distress. Well developed, well nourished. HEENT: Pupils are round and equally reacting to light. EOMI. No scleral icterus. No conjunctival pallor. Normocephalic, atraumatic. No pharyngeal erythema. No thyromegaly. CARDIOVASCULAR: S1 and S2 present. No murmurs, rubs, or gallops. PULMONARY: Diminished breath sound at the bases, no wheezing or crackles. ABDOMEN: Soft, nontender, nondistended, normoactive bowel sounds. No palpable organomegaly. MUSCULOSKELETAL: No joint swelling or deformity. EXTREMITIES: No cyanosis, clubbing, or pedal edema. NEUROLOGICAL: Gross neurological examination did not reveal any focal deficits. SKIN: No rashes. Assessment and plan Acute left-sided nondisplaced to mildly displaced fracture involving the 2nd through 8th ribs. Segmental fractures through third through the eighth rib. No flail chest. Continue pain management - Nondisplaced acute left T6 transverse process fracture secondary to fall - Trace left-sided pneumothorax secondary to above. Aggressive bronchopulmonary hygiene - Left pleural effusion/bilateral patchy opacity likely representing pulmonary contusion. - Essential hypertension Continue bysystolic - Chronic kidney disease, stage III likely nephrosclerosis - Lactic acidosis type II. No clinical evidence of infection - Leukocytosis, resolved Labs and medication were reviewed.. Continue same treatment. Continue with symptomatic treatment. Resume home medication. Monitor labs and vitals. DVT and GI prophylaxis. Further recommendations as per clinical course of the patient Dictation was produced using [employer] dictation software. please excuse any grammatical, word or spelling errors. Objective - Vital Signs Vital signs: Vital Signs Temp 98.4 F 03/01/25 08:00 Pulse 62 03/01/25 11:43 Resp 20 03/01/25 11:43 BP 109/68 03/01/25 11:43 Pulse Ox 94 L 03/01/25 11:43 FiO2 Intake & Output 02/28/25 03/01/25 03/01/25 18:59 06:59 18:59 Intake Total 1482 580 120 Output Total 400 0 Balance 1482 180 120 Weight 99 kg Intake: IV 40 Invasive Line 1 20 Invasive Line 2 20 Oral 1482 540 120 Output: Gastric Drainage 0 Urine 400 0 Stool 0 Urine/Stool Mix 0 Emesis 0 Oral Regurgitation 0 Other 0 Other: Voiding Method Toilet Toilet Toilet Urinal Urinal Urinal # Voids 2 0 # Bowel Movements 0 - Labs CBC & Chem 7: 03/01/25 08:23 03/01/25 08:23 Labs: Abnormal Lab Results - Last 24 Hours (Table) 03/01/25 03/01/25 Range/Units 08:23 08:23 MPV 9.0 L (9.5-12.2) fL Eosinophils # 0.02 L (0.04-0.35) 10*3/uL Chloride 108 H (98-107) mmol/L Carbon Dioxide 16 L (22-30) mmol/L BUN 23 H (9-20) mg/dL Glucose 117 H (74-99) mg/dL
--- NOTE | 2025-03-01 13:52 | P.PN ---
Subjective Progress Note Date: 03/01/25 Patient is a 70-year-old male came to the emergency department yesterday evening after a fall from a ladder. He fell approximately 8 feet onto concrete. Landed on his left side. Denies any head trauma or loss of consciousness. Denies any anticoagulants. His chief complaint was left lateral chest pain. Workup in the emergency department including a CT of the chest demonstrating multiple left-sided acute nondisplaced to mildly displaced fractures involving the left 2nd through 8th ribs, with segmental fractures of 3rd through 8th ribs. Concern for flail chest. Trace left inferior pneumothorax and trace pleural effusion. Bilateral atelectasis or pulmonary contusion. Small amount of subcutaneous emphysema. Additional, nondisplaced acute left T6 transverse process fracture. Labs including a CBC with a WBC count of 7.7, hemoglobin 16.8, platelets 237. BMP: Sodium 141, potassium 4.6, chloride 105, serum bicarb 24, BUN 24, creatinine 1.45, glucose 159. Lactic 2.3 and now 2.8. LFTs unremarkable. Patient currently being evaluated in the intensive care unit. He is on room air. No acute distress. Trachea midline. Equal breath sounds. No paradoxical chest wall movement. No palpable subcu emphysema or crepitus. Continues to report left lateral chest wall pain with movement and deep breathing. Rated 10/10. Morphine is ordered as needed. His incentive spirometer is at bedside. Current vital signs: Heart rate 63 bpm, blood pressure 133/76 mmHg, nontachypneic, SpO2 92% on room air. On 02/28/2025, the patient is receiving adequate pain control. Remains on Dilaudid 1 mg every 3 hours on a as needed basis. Also wearing a lidocaine patch and he is also on Robaxin and [place] 5/325 every 4 hours. Using incentive spirometer. Remains on room air oxygen. Pulse ox 96% room air and there is no significant desaturations. Ambulating. Hemodynamically stable. Blood work melissa ws a WBC count of 18.3, hemoglobin 16.6 and a platelet count of 199. Serum bicarb is at 15. Sodium levels at 139 and a potassium level is at 5.3. BUN is 22 with a creatinine of 1.1. Lactic acid level is down to 1.7. Tolerating diet. No nausea. No emesis. No other significant events overnight. He remains on heparin subcu for DVT prophylaxis. On 03/01/2025, the patient remains on room air oxygen. Denies any specific complaints. The patient remains in the hospital for pain control as the patient has sustained multiple left-sided rib fractures. A chest x-ray was done and shows no significant interval change. No pneumothorax. No hemothorax. No development of any pulmonary consolidation or pleural effusions. The patient is ambulating. Hemoglobin remains stable at 10.4. White cell count is 11.4. Platelet count is 174. Sodium levels at 138 and a potassium level is at 4.1. BUN is 23 with a creatinine of 1.2. He is using the incentive spirometer. He is receiving [place] for pain control. He remains on heparin subcu for DVT prophylaxis. Objective - Vital Signs Vital signs: Vital Signs Temp 98.4 F 03/01/25 08:00 Pulse 65 03/01/25 08:00 Resp 20 03/01/25 08:00 BP 134/67 03/01/25 08:00 Pulse Ox 94 L 03/01/25 08:00 FiO2 Intake & Output 02/28/25 03/01/25 03/01/25 18:59 06:59 18:59 Intake Total 1482 580 120 Output Total 400 0 Balance 1482 180 120 Weight 99 kg Intake: IV 40 Invasive Line 1 20 Invasive Line 2 20 Oral 1482 540 120 Output: Gastric Drainage 0 Urine 400 0 Stool 0 Urine/Stool Mix 0 Emesis 0 Oral Regurgitation 0 Other 0 Other: Voiding Method Toilet Toilet Toilet Urinal Urinal Urinal # Voids 2 0 # Bowel Movements 0 - Exam GENERAL EXAM: Alert, 70-year-old male, on room air, fairly comfortable in no apparent distress. HEAD: Normocephalic and atraumatic EYES: Normal reaction of pupils, equal size. NOSE: Clear with pink turbinates. THROAT: No erythema or exudates. NECK: No masses, no JVD. Trachea midline. CHEST: No paradoxical chest wall movement. No significant crepitus or subcutaneous emphysema. No ecchymosis. LUNGS: Equal air entry with no crackles, wheeze, rhonchi or dullness. No conversational dyspnea or accessory muscle use.. CVS: S1 and S2 normal with no audible murmur, regular rhythm. No extra heart sounds ABDOMEN: No hepatosplenomegaly, active bowel sounds, no guarding or rigidity. SPINE: No scoliosis or deformity SKIN: No rashes. Ecchymosis, left lateral abdomen CENTRAL NERVOUS SYSTEM: No focal deficits, tone is normal in all 4 extremities. EXTREMITIES: There is mild bilateral nonpitting edema. No clubbing or cyanosis. Peripheral pulses are intact. - Labs CBC & Chem 7: 03/01/25 08:23 03/01/25 08:23 Labs: Abnormal Lab Results - Last 24 Hours (Table) 03/01/25 03/01/25 Range/Units 08:23 08:23 MPV 9.0 L (9.5-12.2) fL Eosinophils # 0.02 L (0.04-0.35) 10*3/uL Chloride 108 H (98-107) mmol/L Carbon Dioxide 16 L (22-30) mmol/L BUN 23 H (9-20) mg/dL Glucose 117 H (74-99) mg/dL Assessment and Plan Assessment: Acute nondisplaced to mildly displaced fractures involving left 2nd through 8th ribs with segmental fractures from 3rd through 8th ribs. Clinically, no paradoxical chest wall movement. The patient remained stable and the patient continues to receive pain control, currently on [place], Dilaudid, and a lidocaine patch. Pain is under better control and the patient remains on room air oxygen. Follow-up chest x-ray from 03/01/2025 shows no interval changes. Trace left-sided pleural effusion, likely hemothorax, minimal Trace left-sided pneumothorax, not clinically significant Bibasilar atelectasis versus pulmonary contusion Acute dyspnea, secondary to combination of above, improving Fall from ladder Hypertension Acute kidney injury, improved Obesity, BMI 33.9 kg/m Plan: Oxygenation remained stable Continues incentive spirometer Pain management [place] and lidocaine patch. The patient is also on Robaxin. Encourage pulmonary toileting hourly, incentive spirometer at bedside No need for thoracotomy tube Repeat chest x-ray in the morning shows stable findings Patient is ambulating. Will continue to follow. Discharge as per medicine and surgical team.
[2025-03-02 10:42] VITALS: RESP 16
[2025-03-02 12:58] VITALS: BP 119/70; PULSE 67; TEMP 98.9
--- NOTE | 2025-03-02 13:35 | P.PN ---
Subjective Progress Note Date: 03/02/25 70-year-old patient, with chronic medical condition include hypertension chronic kidney disease. Patient was in his garage on the ladder. And coming down after putting up stuff patient to grab staff and fell. Injury on his left side. X-ray showed displaced mildly left lateral 4-8 rib fractures. No pneumothorax was identified. CT scan did show some segmental fractures of the 3rd through 8th ribs. In view of that patient was moved to the ICU. But it was decided patient does not have any flail chest. Having significant pain. Slight cough 02/28. Patient seen and examined. Labs reviewed showed WBC 18.36, hemoglobin 16.6, sodium 139, potassium 5.3, BUN 22, creatinine 1.11. Currently on room air. Still complaining of pain in the ribs 03/01. Patient seen examined. Sitting upright in the chair. No acute issues overnight states pain is better controlled. Labs reviewed showed WBC 9.4, hemoglobin 10.4, platelet count 174, sodium 138, potassium 4.1, BUN 23, creatinine 1.24 03/02. Patient seen and examined. States pain is under control now. Patient possible discharge today REVIEW OF SYSTEMS: CONSTITUTIONAL: No fever, no malaise,. CARDIOVASCULAR: No chest pain, no palpitations, no syncope. PULMONARY: No shortness of breath, no cough, GASTROINTESTINAL: No diarrhea, no nausea, no vomiting, no abdominal pain. NEUROLOGICAL: No headaches, no weakness, PHYSICAL EXAMINATION: GENERAL: The patient is alert and oriented x3, not in any acute distress. Well d eveloped, well nourished. HEENT: Pupils are round and equally reacting to light. EOMI. No scleral icterus. No conjunctival pallor. Normocephalic, atraumatic. No pharyngeal erythema. No thyromegaly. CARDIOVASCULAR: S1 and S2 present. No murmurs, rubs, or gallops. PULMONARY: Diminished breath sound at the bases, no wheezing or crackles. ABDOMEN: Soft, nontender, nondistended, normoactive bowel sounds. No palpable organomegaly. MUSCULOSKELETAL: No joint swelling or deformity. EXTREMITIES: No cyanosis, clubbing, or pedal edema. NEUROLOGICAL: Gross neurological examination did not reveal any focal deficits. SKIN: No rashes. Assessment and plan Acute left-sided nondisplaced to mildly displaced fracture involving the 2nd through 8th ribs. Segmental fractures through third through the eighth rib. No flail chest. Continue pain management - Nondisplaced acute left T6 transverse process fracture secondary to fall - Trace left-sided pneumothorax secondary to above. Aggressive bronchopulmonary hygiene - Left pleural effusion/bilateral patchy opacity likely representing pulmonary contusion. - Essential hypertension Continue bysystolic - Chronic kidney disease, stage III likely nephrosclerosis - Lactic acidosis type II. No clinical evidence of infection - Leukocytosis, resolved Labs and medication were reviewed.. Continue same treatment. Continue with symptomatic treatment. Resume home medication. Monitor labs and vitals. DVT and GI prophylaxis. Further recommendations as per clinical course of the patient Dictation was produced using [employer] dictation software. please excuse any grammatical, word or spelling errors. Objective - Vital Signs Vital signs: Vital Signs Temp 98.2 F 03/02/25 04:00 Pulse 60 03/02/25 04:00 Resp 14 03/02/25 04:00 BP 143/74 03/02/25 04:00 Pulse Ox 95 03/02/25 04:00 FiO2 Intake & Output 03/01/25 03/02/25 03/02/25 18:59 06:59 18:59 Intake Total 1260 20 180 Output Total 0 400 Balance 1260 -380 180 Weight 99 kg Intake: IV 20 Invasive Line 1 10 Invasive Line 2 10 Oral 1260 180 Output: Gastric Drainage 0 Urine 0 400 Stool 0 Urine/Stool Mix 0 Emesis 0 Oral Regurgitation 0 Other 0 Other: Voiding Method Toilet Toilet Urinal Urinal # Voids 1 2 1 # Bowel Movements 2 - Labs CBC & Chem 7: 03/01/25 08:23 03/01/25 08:23
--- NOTE | 2025-03-02 13:37 | P.DS ---
Providers Date of admission: 02/26/25 21:31 Discharge Diagnosis: 1. Fall from 8 feet with trauma to left side of chest 2. Multiple left-sided acute nondisplaced mildly displaced fractures involving the second and 3rd through 8th ribs. There are segmental fractures of the 3rd through 8th ribs. No evidence of flail chest. Chest expands equally, no paradoxical movement of chest 3. Nondisplaced acute left T6 transverse process fracture 4. Trace left-sided pleural effusion, likely hemothorax 5. Bibasilar pulmonary contusions 6. Acute possible chronic kidney injury Hospital Course: 70-year-old male presented to the ER after a fall from about 8 feet off of a ladder. Landed on left side of his chest with evidence of multiple left-sided rib fractures as seen on CT scan. Patient denied any loss of consciousness and denies abdominal pain. Reported increased pain with taking a deep breath or any movement. CT scan of the chest reports multiple left-sided acute nondisplaced mildly displaced fractures involving the second and 3rd through 8th ribs. There are segmental fractures of the 3rd through 8th ribs. Nondisplaced acute left T6 transverse process fracture. There is associated trace pneumothorax left pleural effusion and subcutaneous emphysema. Bibasilar patchy opacities likely representing pulmonary contusions and/or atelectasis. Patient denied being on any blood thinners. Patient admitted to general surgery. While admitted patient underwent imaging which showed no evidence of flail chest. Chest expands equally with no paradoxical movement of the chest. The patient was started on Lidoderm patch 5% every 12 hours on and 12 hours off over the affected area, Neurontin 300 mg p.o. twice daily, Zanaflex 2 mg p.o. every 8 hours, Hickman 5/325 p.o. every 6 hours, and Dilaudid 0.5 mg IV every 3-4 hours as needed for the first 48 hours of the hospital stay. Pain management also successfully performed a left erector spinae plane nerve block. After receiving pain medications and nerve block the patient's pain improved during his hospital stay. Patient has been optimized for discharge. Patient be discharged on Robaxin 500 mg 3 times daily as needed for a week, 3-day course of Hickman 5325 every 4 hours as needed, and lidocaine 5% patch. Follow-up with PCP in 1 to 2 weeks and orthopedic surgery in 1 to 2 weeks. Pt seen and examined at bedside: No significant overnight events, patient has no complaints at this time and is asking when he can go home. PHYSICAL EXAM: VITAL SIGNS: Reviewed GENERAL: Well-developed in no acute distress. CHEST: Mild tenderness with palpation along the left side of the chest wall. Chest expands equally bilaterally. 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 HEENT: No sclera icterus. Extraocular movements grossly intact. Moist buccal mucosa. Head is atraumatic, normocephalic. No nasal drainage. ABDOMEN: Soft. Nondistended. Nontender NEUROLOGIC: Alert and oriented. Cranial nerves II through XII grossly intact. A total of greater than 30 minutes were spent preparing this complex discarge summary. Patient was discharged on 03/02/2025. Attestation Patient improved throughout the admission. Denies any shortness of breath. Pain well-controlled. Plan for discharge. Kylee Muñoz DO Attending physician: Kylee Muñoz DO Consults: 02/26/25 21:31 Consult Physician Stat Consulting Provider: Pancho Abebe Consult Reason/Comments: Critical care management Do you want consulting provider notified?: Yes 02/26/25 21:33 Consult Physician Routine Consulting Provider: [facility] Consult Reason/Comments: Flail chest pain management Do you want consulting provider notified?: Yes Consult Physician Routine Consulting Provider: [facility] Reason/Comments: Pulmonary Contusion Do you want consulting provider notified?: Yes Consult Physician Routine Consulting Provider: Baldemar Mckay Consult Reason/Comments: Flail chest Do you want consulting provider notified?: Yes Consult Physician Routine Consulting Provider: Guanako Maya Consult Reason/Comments: Medical management Do you want consulting provider notified?: Yes 02/27/25 11:05 Consult Physician Routine Consulting Provider: Edilson Jiang Consult Reason/Comments: T6 transverse process fracture Do you want consulting provider notified?: Yes Primary care physician: Arjun Aranda Plan - Discharge Summary New Discharge Prescriptions: New methocarbamoL [Robaxin] 500 mg PO TID #21 tab Lidocaine 5% Patch [Lidoderm] 1 patch TOPICAL DAILY #7 patch HYDROcodone/APAP 5-325MG [Hickman 5-325] 1 tab PO Q4HR PRN 3 Days #18 tab PRN Reason: Pain Control No Action amLODIPine [Norvasc] 10 mg PO DAILY Nebivolol HCl 2.5 mg PO DAILY Discharge Medication List Nebivolol HCl 2.5 mg PO DAILY 02/27/25 [History] amLODIPine [Norvasc] 10 mg PO DAILY 02/27/25 [History] HYDROcodone/APAP 5-325MG [Hickman 5-325] 1 tab PO Q4HR PRN 3 Days #18 tab 03/02/25 [Rx] Lidocaine 5% Patch [Lidoderm] 1 patch TOPICAL DAILY #7 patch 03/02/25 [Rx] methocarbamoL [Robaxin] 500 mg PO TID #21 tab 03/02/25 [Rx] Follow up Appointment(s)/Referral(s): Lalo Acuna MD [STAFF PHYSICIAN] - 03/05/25 2:00 pm Angelina Arellano NPC [Nurse Practitioner] - [facility],Gloria VIZCAINO [NON-STAFF] - As Needed Patient Instructions/Handouts: Rib Fracture (DC) Discharge/Stand Alone Forms: Anes Pain/[facility] Instructions Discharge Disposition: HOME SELF-CARE
--- NOTE | 2025-03-02 16:40 | P.PN ---
Subjective Progress Note Date: 03/02/25 Principal diagnosis: Acute nondisplaced fractures involving 2nd through 8th rib secondary to fall Patient is a 70-year-old male came to the emergency department yesterday evening after a fall from a ladder. He fell approximately 8 feet onto concrete. Landed on his left side. Denies any head trauma or loss of consciousness. Denies any anticoagulants. His chief complaint was left lateral chest pain. Workup in the emergency department including a CT of the chest demonstrating multiple left- sided acute nondisplaced to mildly displaced fractures involving the left 2nd th rough 8th ribs, with segmental fractures of 3rd through 8th ribs. Concern for flail chest. Trace left inferior pneumothorax and trace pleural effusion. Bilateral atelectasis or pulmonary contusion. Small amount of subcutaneous emphysema. Additional, nondisplaced acute left T6 transverse process fracture. Labs including a CBC with a WBC count of 7.7, hemoglobin 16.8, platelets 237. BMP: Sodium 141, potassium 4.6, chloride 105, serum bicarb 24, BUN 24, creatinine 1.45, glucose 159. Lactic 2.3 and now 2.8. LFTs unremarkable. Patient currently being evaluated in the intensive care unit. He is on room air. No acute distress. Trachea midline. Equal breath sounds. No paradoxical chest wall movement. No palpable subcu emphysema or crepitus. Continues to report left lateral chest wall pain with movement and deep breathing. Rated 10/10. Morphine is ordered as needed. His incentive spirometer is at bedside. Current vital signs: Heart rate 63 bpm, blood pressure 133/76 mmHg, non tachypneic, SpO2 92% on room air. On 02/28/2025, the patient is receiving adequate pain control. Remains on Dilaudid 1 mg every 3 hours on a as needed basis. Also wearing a lidocaine patch and he is also on Robaxin and Bryant 5/325 every 4 hours. Using incentive spirometer. Remains on room air oxygen. Pulse ox 96% room air and there is no significant desaturations. Ambulating. Hemodynamically stable. Blood work shows a WBC count of 18.3, hemoglobin 16.6 and a platelet count of 199. Serum bicarb is at 15. Sodium levels at 139 and a potassium level is at 5.3. BUN is 22 with a creatinine of 1.1. Lactic acid level is down to 1.7. Tolerating diet. No nausea. No emesis. No other significant events overnight. He remains on heparin subcu for DVT prophylaxis. On 03/01/2025, the patient remains on room air oxygen. Denies any specific complaints. The patient remains in the hospital for pain control as the patient has sustained multiple left-sided rib fractures. A chest x-ray was done and shows no significant interval change. No pneumothorax. No hemothorax. No development of any pulmonary consolidation or pleural effusions. The patient is ambulating. Hemoglobin remains stable at 10.4. White cell count is 11.4. Platelet count is 174. Sodium levels at 138 and a potassium level is at 4.1. BUN is 23 with a creatinine of 1.2. He is using the incentive spirometer. He is receiving Bryant for pain control. He remains on heparin subcu for DVT prophylaxis. Patient was seen today on 03/02/2025, patient is doing well, feeling better, pain is under control, doing well with incentive spirometry, he is on room air, O2 saturation is normal, hence the patient will be considered for discharge today. Objective - Vital Signs Vital signs: Vital Signs Temp 98.9 F 03/02/25 12:00 Pulse 67 03/02/25 12:00 Resp 16 03/02/25 12:00 BP 119/70 03/02/25 12:00 Pulse Ox 95 03/02/25 12:00 FiO2 Intake & Output 03/01/25 03/02/25 03/02/25 18:59 06:59 18:59 Intake Total 1260 20 180 Output Total 0 400 0 Balance 1260 -380 180 Weight 99 kg Intake: IV 20 Invasive Line 1 10 Invasive Line 2 10 Oral 1260 180 Output: Gastric Drainage 0 Urine 0 400 Stool 0 0 Urine/Stool Mix 0 Emesis 0 Oral Regurgitation 0 Other 0 Other: Voiding Method Toilet Toilet Toilet Urinal Urinal Urinal # Voids 1 2 1 # Bowel Movements 2 - Exam General: The patient is awake and alert, in no distress, and does not appear acutely ill. Skin: Skin is warm and dry and no rashes or lesions are noted. Eye: Pupils are equal, round and reactive to light, extra-ocular movements are intact; there is normal conjunctiva bilaterally. Ears, nose, mouth and throat: There are moist mucous membranes and no oral lesions. Neck: The neck is supple, there is no tenderness or JVD. Cardiovascular: There is a regular rate and rhythm. No murmur, rub or gallop is appreciated. Respiratory: Clear bilaterally no rhonchi no wheezes Gastrointestinal: Soft, non-distended, non-tender abdomen without masses or organomegaly noted. There is no rebound or guarding present. Bowel sounds are unremarkable. Back: There is no tenderness to palpation in the midline. There is no obvious deformity. Musculoskeletal: Normal ROM, no tenderness, There is no pedal edema. There is no calf tenderness or swelling. No cords were appreciated. Neurological: CN II-XII intact, Cranial nerves III through XII are intact. There are no obvious motor or sensory deficits. Coordination appears grossly intact. Speech is normal. Psychiatric: Cooperative, appropriate mood & affect, normal judgment. - Labs CBC & Chem 7: 03/01/25 08:23 03/01/25 08:23 Assessment and Plan Assessment: Impression: Acute nondisplaced to mildly displaced fractures involving left 2nd through 8th ribs with segmental fractures from 3rd through 8th ribs. Trace left-sided pleural effusion, likely hemothorax, minimal, no need for intervention Trace left-sided pneumothorax, not clinically significant Bibasilar atelectasis versus pulmonary contusion Acute dyspnea, secondary to combination of above, improving Fall from ladder Hypertension Acute kidney injury, improved Obesity, BMI 33.9 kg/m Recommendation: Continue incentive spirometry Continue pain meds Continue to encourage ambulation Will clear the patient for discharge if cleared by other consultants Time with Patient: Less than 30
== END 2025-03-02 15:23 | disposition home or self-care (01) | DRG 184 ==
LOC: EC 17:49 → 2SICU 21:31 → 3SCARD 02-27 15:39
PROVIDERS: ADMIT Surgery; ATTEND Surgery
PROC: 3E0R3BZ Introduction of Anesthetic Agent into Spinal Canal, Percutaneous Approach (ICD-10-PCS; principal; 2025-02-27)
PROC: 3E0R33Z Introduction of Anti-inflammatory into Spinal Canal, Percutaneous Approach (ICD-10-PCS; principal; 2025-02-27)
DX: S22.42XA Multiple fractures of ribs, left side, initial encounter for closed fracture (principal); E87.20 Acidosis, unspecified; S22.051A Stable burst fracture of T5-T6 vertebra, initial encounter for closed fracture; T79.7XXA Traumatic subcutaneous emphysema, initial encounter; S27.322A Contusion of lung, bilateral, initial encounter; N17.9 Acute kidney failure, unspecified; N18.30 Chronic kidney disease, stage 3 unspecified; E66.9 Obesity, unspecified; I12.9 Hypertensive chronic kidney disease with stage 1 through stage 4 chronic kidney disease, or unspecified chronic kidney disease; J98.11 Atelectasis; Z68.33 Body mass index [BMI] 33.0-33.9, adult; G89.11 Acute pain due to trauma; D72.829 Elevated white blood cell count, unspecified; Z79.899 Other long term (current) drug therapy; W11.XXXA Fall on and from ladder, initial encounter
CPT/HCPCS: 36415; 64466; 71045; 71046; 71250; 80048; 80053; 83605; 83735; 85025; 85610; 85730; 93005; 96374; 96375; 96376; 99291

== ENCOUNTER → 2025-05-04 | Outpatient (CLI) | payer MEDICARE ==
[2025-05-04 15:31] LABS: Basophils # (A) 0.03 X 10*3/uL (0.00-0.10); Basophils % (A) 0.5 %; Eosinophils # (A) 0.20 X 10*3/uL (0.04-0.35); Eosinophils % (A) 3.3 %; HCT 49.0 % (39.6-50.0); HGB 16.4 g/dL (13.0-17.0); Immature Grans, Automated 0.30 %; Lymphocytes # (A) 1.67 X 10*3/uL (0.90-5.00); Lymphocytes % (A) 27.2 %; MCH 30.6 pg (27.0-32.0); MCHC 33.5 g/dL (32.0-37.0); MCV 91.4 FL (80.0-97.0); Monocytes # (A) 0.64 X 10*3/uL (0.20-1.00); Monocytes % (A) 10.4 %; NRBC Per 100 WBC 0 X 10*3/uL (0.00-0.01); Neutrophils # (A) 3.59 X 10*3/uL (1.80-7.70); Neutrophils % (A) 58.3 %; Platelet Count 205 X 10*3/uL (140-440); RBC 5.36 X 10*6/uL (4.40-5.60); RDW 12.9 % (11.5-14.5); WBC 6.15 X 10*3/uL (4.50-10.00)
[2025-05-04 15:44] LABS: ALT 21 U/L (10-49); AST 27 U/L (14-35); Albumin 4.4 g/dL (3.8-4.9); Albumin/Globulin Ratio 2.10 Ratio (1.60-3.17); Alkaline Phosphatase 111 U/L (41-126); Anion Gap 9.80 mmol/L (4.00-12.00); BUN/Creat Ratio 16.38 Ratio (12.00-20.00); Blood Urea Nitrogen 21.3 mg/dL (9.0-27.0); Calcium 9.4 mg/dL (8.7-10.3); Carbon Dioxide 25.2 mmol/L (21.6-31.8); Chloride 108 mmol/L (96-109); Globulin 2.1 g/dL (1.6-3.3); Glucose 81 mg/dL (70-110); Potassium 4.4 mmol/L (3.5-5.5); Sodium 143 mmol/L (135-145); Total Protein 6.5 g/dL (6.2-8.2)
== END | disposition home or self-care (01) ==
LOC: LABWHC1 10:21
PROVIDERS: ATTEND Family Medicine
DX: I10 Essential (primary) hypertension (principal)
CPT/HCPCS: 36415; 80053; 85025